=== PATIENT | female | born 1990 | race Caucasian/White ===

== ENCOUNTER 2016-06-26 19:37 | Emergency (ER) | payer MEDICAID ==
[2016-06-26] MEDS ORDERED: ACYCLOVIR 200 MG CAPSULE PO ONE (19:57)
[2016-06-26] MEDS ORDERED: HYDROCODONE/APAP 5/325MG TABLET PO ONE (19:57)
--- NOTE | 2016-06-26 20:00 | Emergency Department Record ---
History of Present Illness - General Chief complaint: Rash Stated complaint: LIP PROBLEM Time Seen by Provider: 06/26/16 19:57 Source: Patient Mode of Arrival: Ambulatory Limitations: No limitations - History of Present Illness Initial comments: 25 yo female presents to ED with a CC of swelling, pain, and burning to the left lower lip. Patient reports previous symptoms related to herpes simplex. Patient reports that she is out of her acyclovir, and would like to start the medication before it becomes worse as she is going to work in the morning. MD complaint: Other Onset/Timin -: Hour(s) Location: Face Severity scale (1-10): 8 Quality: Other Consistency: Constant Improves with: None Worsens with: Palpation Treatments Prior to Arrival: None - Related Data Previous Rx's Medication Instructions Recorded Acyclovir [Zovirax] 800 mg PO 5XD #34 tablet 06/26/16 Hydrocodone/Acetaminophen [[place] 1 tab PO Q6H PRN #6 tab 06/26/16 5mg/325mg] Allergies Allergy/AdvReac Type Severity Reaction Status Date / Time cyclobenzaprine HCl Allergy Intermediate DIZZINESS Verified 06/26/16 19:43 [From Flexeril] ibuprofen Allergy Intermediate GI upset, Verified 06/26/16 19:43 red patches Travel Screening - Travel/Exposure Within Last 30 Days Have you traveled within the last 30 days?: No - Travel Symptoms Symptom Screening: None Review of Systems Constitutional: Denies: Chills, Fever, Malaise, Night sweats Eyes: Denies: Eye discharge, Eye pain ENT: Reports: Other (lip burning). Denies: Congestion, Ear pain, Epistaxis Respiratory: Denies: Cough, Dyspnea Cardiovascular: Denies: Chest pain, Dyspnea on exertion Endocrine: Denies: Fatigue, Heat or cold intolerance Gastrointestinal: Denies: Abdominal pain, Nausea, Vomiting Genitourinary: Denies: Dysuria, Frequency, Hematuria, Incontinence Musculoskeletal: Denies: Arthralgia, Back pain, Gout, Joint swelling Skin: Denies: Bruising, Change in color Neurological: Denies: Abnormal gait, Confusion, Headache, Seizure Psychiatric: Denies: Anxiety Hematological/Lymphatic: Denies: Anemia, Blood Clots Past Medical History - SOCIAL HISTORY Smoking Status: Current every day smoker - RESPIRATORY Hx Respiratory Disorders: No - CARDIOVASCULAR Hx Cardio Disorders: No - NEURO Hx Neuro Disorders: Yes Hx Headaches: Yes - GI Hx GI Disorders: Yes Hx Liver Disease: Yes (elevated enzymes) - Hx Genitourinary Disorders: No - ENDOCRINE Hx Endocrine Disorders: No - MUSCULOSKELETAL Hx Musculoskeletal Disorders: Yes Comment:: Herpes zoster - PSYCH Hx Psych Problems: No - HEMATOLOGY/ONCOLOGY Hx Hematology/Oncology Disorders: No Family Medical History Any Significant Family History?: Yes Hx Diabetes: Grandparents Physical Exam - General General Appearance: Alert, Oriented x3, Cooperative, No acute distress Limitations: No limitations - Head Head exam: Atraumatic, Normocephalic, Normal inspection Head exam detail: Other (very mild STS to the left lower lip, small ulceration to the inner lip mucosa). negative: Abrasion, Contusion, Luke's sign, General tenderness, Hematoma, Laceration - Eye Eye exam: Normal appearance. negative: Conjunctival injection, Periorbital swelling, Periorbital tenderness, Scleral icterus - ENT Ear exam: negative: Auricular hematoma, Auricular trauma Nasal Exam: negative: Active bleeding, Discharge, Dried blood, Foreign body Mouth exam: negative: Drooling, Laceration, Muffled voice, Tongue elevation - Neck Neck exam: Normal inspection. negative: Meningismus, Tenderness - Respiratory Respiratory exam: Normal lung sounds bilaterally. negative: Rales, Respiratory distress, Rhonchi, Stridor - Cardiovascular Cardiovascular Exam: Regular rate, Normal rhythm, Normal heart sounds - GI/Abdominal GI/Abdominal exam: Soft. negative: Rebound, Rigid, Tenderness - Rectal Rectal exam: Deferred - exam: Deferred - Extremities Extremities exam: Normal inspection. negative: Calf tenderness, Pedal edema, Tenderness - Back Back exam: Denies: CVA tenderness (R), CVA tenderness (L) - Neurological Neurological exam: Alert, Normal gait, Oriented X3 - Psychiatric Psychiatric exam: Normal affect, Normal mood - Skin Skin exam: Normal color. negative: Abrasion Type of lesion: negative: abrasion Course Vital Signs 06/26/16 19:43 Temperature 98.4 F Pulse Rate [ 104 H Pulse Ox Probe] Respiratory 20 Rate Blood Pressure 125/101 [Left Arm] Pulse Ox 97 - Reevaluation(s) Reevaluation #1: 06/26/16 20:03 Patients history and physical examination appear consistent with oral herpes, and the patient appears stable for discharge on acyclovir and [place] for her symptoms. Disposition Disposition: Discharge Clinical Impression: Herpes simplex Disposition: Home, Self-Care Condition: (2) Stable Instructions: Oral Herpes Simplex Virus Infections (ED) Additional Instructions: Return to ED if your symptoms worsen or if you have any concerns. Acyclovir and [place] as directed. Follow-up with your family doctor in 3-5 days as directed. Prescriptions: Hydrocodone/Acetaminophen [[place] 5mg/325mg] 1 tab PO Q6H PRN #6 tab PRN Reason: Pain - General Acyclovir [Zovirax] 800 mg PO 5XD #34 tablet Forms: Patient Portal Access Time of Disposition: 19:59
== END 2016-06-26 20:15 | disposition home or self-care (01) ==
LOC: ER 19:37
DX: B00.1 Herpesviral vesicular dermatitis (principal)
CPT/HCPCS: 99282

== ENCOUNTER 2016-08-12 17:47 | Emergency (ER) | payer MEDICAID ==
[2016-08-12] MEDS ORDERED: HYDROCODONE/APAP 5/325MG TABLET PO ONE (18:07)
--- NOTE | 2016-08-12 18:12 | Emergency Department Record ---
History of Present Illness - General Chief complaint: Extremity Problem Stated complaint: FINGER INJURY Time Seen by Provider: 08/12/16 18:06 Source: Patient, Family Mode of Arrival: Ambulatory Limitations: No limitations - History of Present Illness Initial comments: 26 yo female presents with an injury to the right hand. She slammed her hand in a door around 6:30am. 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 She has some pain with movement. MD Complaint: Extremity pain, Joint swelling Onset/Timin -: Hour(s) Location: Right, Hand History of Same: No -: Yes Arthralgia Quality: Aching Consistency: Constant Improves with: Nothing Worsens with: Exertion, Other Associated Symptoms: Denies other symptoms - Related Data Previous Rx's Medication Instructions Recorded Hydrocodone/Acetaminophen [[place] 1 each PO Q8H PRN #15 tablet 08/12/16 5-325 Tablet] Allergies Allergy/AdvReac Type Severity Reaction Status Date / Time cyclobenzaprine HCl Allergy Intermediate DIZZINESS Verified 06/26/16 19:43 [From Flexeril] ibuprofen Allergy Intermediate GI upset, Verified 06/26/16 19:43 red patches Travel Screening - Travel/Exposure Within Last 30 Days Have you traveled within the last 30 days?: No - Travel/Exposure Within Last Year Have you traveled outside the [place] in the last year?: No - Additonal Travel Details Have you been exposed to anyone with a communicable illness?: No - Travel Symptoms Symptom Screening: None Review of Systems Constitutional: Denies: Chills, Fever, Malaise, Weakness Eyes: Denies: Eye discharge, Eye pain, Photophobia, Vision change ENT: Denies: Congestion, Throat pain Respiratory: Denies: Cough Cardiovascular: Denies: Chest pain, Palpitations, Syncope Endocrine: Denies: Fatigue, Polydipsia, Polyuria Gastrointestinal: Denies: Abdominal pain, Diarrhea, Nausea, Vomiting Genitourinary: Denies: Dysuria, Urgency Musculoskeletal: Reports: As per HPI, Arthralgia, Joint swelling Skin: Reports: As per HPI, Bruising, Change in color Neurological: Denies: Confusion, Headache, Weakness Psychiatric: Denies: Anxiety Hematological/Lymphatic: Denies: Blood Clots, Easy bleeding, Easy bruising, Swollen glands Past Medical History - SOCIAL HISTORY Smoking Status: Current every day smoker Alcohol Use: Occassional Drug Use: None - RESPIRATORY Hx Respiratory Disorders: No - CARDIOVASCULAR Hx Cardio Disorders: No - NEURO Hx Neuro Disorders: Yes Hx Headaches: Yes - GI Hx GI Disorders: Yes Hx Liver Disease: Yes (elevated enzymes) - Hx Genitourinary Disorders: No - ENDOCRINE Hx Endocrine Disorders: No - MUSCULOSKELETAL Hx Musculoskeletal Disorders: Yes Comment:: Herpes zoster - PSYCH Hx Psych Problems: No - HEMATOLOGY/ONCOLOGY Hx Hematology/Oncology Disorders: No Family Medical History Any Significant Family History?: No Hx Diabetes: Grandparents Physical Exam - General General Appearance: Alert, Oriented x3, Cooperative, No acute distress Limitations: No limitations - Head Head exam: Normal inspection - Eye Eye exam: Normal appearance, PERRL. negative: Conjunctival injection, Periorbital swelling - ENT ENT exam: Normal exam, Mucous membranes moist Ear exam: Normal external inspection Nasal Exam: Normal inspection Mouth exam: Normal external inspection Teeth exam: Normal inspection Throat exam: Normal inspection - Neck Neck exam: Normal inspection - Cardiovascular Cardiovascular Exam: Regular rate, Normal rhythm, Normal heart sounds Peripheral Pulses: 2+: Radial (R) - Rectal Rectal exam: Deferred - exam: Deferred - Extremities Extremities exam: Joint swelling, Normal capillary refill, Tenderness. negative : Normal inspection, Full ROM Image of Hand: 1 - mild swelling and bruising, small lateral subungual hematoma, <1/2 of finger. mild decrease in ROM due to swelling, skin is intact - Neurological Neurological exam: Alert, Oriented X3 - Psychiatric Psychiatric exam: Normal affect, Normal mood. negative: Agitated, Anxious - Skin Skin exam: Dry, Intact, Normal color, Warm Course Vital Signs 08/12/16 17:51 Temperature 97.8 F Pulse Rate 104 H Respiratory 18 Rate Blood Pressure 119/76 Pulse Ox 100 - Reevaluation(s) Reevaluation #1: The patient was seen and examined XR ordered. 08/12/16 18:14 Reevaluation #2: 08/12/16 18:40XR demonstrates a distal non displaced tiff fracture She was informed and will be splinted Disposition Disposition: Discharge Clinical Impression: Finger fracture, right Qualifiers: Encounter type: initial encounter Finger: little finger Fracture type: closed Phalanx: distal Fracture alignment: nondisplaced Qualified Code(s): S62.666A - Nondisplaced fracture of distal phalanx of right little finger, initial encounter for closed fracture Disposition: Home, Self-Care Condition: (1) Good Instructions: Finger Fracture (ED) Additional Instructions: Ice and elevate Avoid use the next several days Return if you have swelling or uncontrolled pain or any new concerns No driving within 8 hours of taking [place] as it can cause drowsiness. Prescriptions: Hydrocodone/Acetaminophen [[place] 5-325 Tablet] 1 each PO Q8H PRN #15 tablet PRN Reason: Pain - General Forms: Patient Portal Access Time of Disposition: 18:42
--- NOTE | 2016-08-17 14:48 | RADIOLOGY REPORT ---
EXAM: RIGHT HAND, FOUR VIEWS HISTORY: CLOSED HAND IN RIGHT HANDED DOOR. RIGHT FINGER PAIN. TECHNIQUE: Four views of the right hand were obtained. Comparison: None. Encounter: Initial. FINDINGS: There is an acute nondisplaced transverse fracture of the distal tuft of the right fifth distal phalanx. No additional fracture. IMPRESSION: ACUTE NONDISPLACED FRACTURE DISTAL TUFT RIGHT FIFTH DISTAL PHALANX. JOB NUMBER: [id number] MTDD
== END 2016-08-12 18:59 | disposition home or self-care (01) ==
LOC: ER 17:47
DX: S62.666A Nondisplaced fracture of distal phalanx of right little finger, initial encounter for closed fracture (principal); W22.8XXA Striking against or struck by other objects, initial encounter; Y92.009 Unspecified place in unspecified non-institutional (private) residence as the place of occurrence of the external cause
CPT/HCPCS: 99283

== ENCOUNTER 2016-08-24 18:32 | Emergency (ER) | payer SELFPAY ==
[2016-08-24 19:14] LABS: URINE APPEARANCE CLEAR; URINE BILIRUBIN NEGATIVE (NEGATIVE); URINE BLOOD LARGE (NEGATIVE); URINE COLOR YELLOW; URINE GLUCOSE (UA) NEGATIVE (NEGATIVE); URINE KETONE NEGATIVE (NEGATIVE); URINE LEUKOCYTE ESTERASE NEGATIVE (NEGATIVE); URINE NITRITE NEGATIVE (NEGATIVE); URINE PROTEIN NEGATIVE (NEGATIVE); URINE UROBILINOGEN 0.2 E.U./dL (0.20 - 1.00)
[2016-08-24 19:17] LABS: HCG,QUALITATIVE URINE NEGATIVE (NEGATIVE)
[2016-08-24 19:24] LABS: URINE BACTERIA FEW; URINE MUCUS LIGHT; URINE WBC 0 - 2 (0-2/hpf)
[2016-08-24] MEDS ORDERED: ONDANSETRON HCL IV 4 MG/2 ML VIAL IV ONE (19:30)
[2016-08-24] MEDS ORDERED: 0.9 % SODIUM CHLORIDE 1,000 ML BAG IV ONE (19:30)
--- NOTE | 2016-08-24 19:53 | Emergency Department Record ---
History of Present Illness - General Chief Complaint: Recheck - Other Stated Complaint: VOMITING,ABD PAIN, NEEDS FINGER RE CHECK Time Seen by Provider: 08/24/16 19:24 Source: Patient Mode of arrival: Ambulatory Limitations: No limitations - History of Present Illness Initial Comments: pt has been vomiting for 3 days sandrine in the am. she has no diarrhea. she denies diarrhea. pt also needs a new splint for her previously dxd fx finger Complaint: Other Onset/Timin -: Days(s) Initial Visit For: Other Returns Today for: Other Symptoms Since Prior Visit: No new symptoms Associated Symptoms: None - Related Data Home Medications Medication Instructions Recorded Confirmed Last Taken No Home Med [NO HOME MEDS] 08/24/16 08/24/16 Unknown Allergies Allergy/AdvReac Type Severity Reaction Status Date / Time cyclobenzaprine HCl Allergy Intermediate DIZZINESS Verified 06/26/16 19:43 [From Flexeril] ibuprofen Allergy Intermediate GI upset, Verified 06/26/16 19:43 red patches Travel Screening - Travel/Exposure Within Last 30 Days Have you traveled within the last 30 days?: No Review of Systems Reviewed: No additional complaints except as noted below Constitutional: Reports: As per HPI. Denies: Chills, Fever, Malaise, Night sweats, Weakness, Weight change Eyes: Reports: As per HPI. Denies: Eye discharge, Eye pain, Photophobia, Vision change ENT: Reports: As per HPI. Denies: Congestion, Dental pain, Ear pain, Epistaxis , Hearing loss, Throat pain Respiratory: Reports: As per HPI. Denies: Cough, Dyspnea, Hemoptysis, Stridor, Wheezes Cardiovascular: Reports: As per HPI. Denies: Arrhythmia, Chest pain, Dyspnea on exertion, Edema, Murmurs, Orthopnea, Palpitations, Paroxysmal nocturnal dyspnea, Rheumatic Fever, Syncope Endocrine: Reports: As per HPI. Denies: Fatigue, Heat or cold intolerance, Polydipsia, Polyuria Gastrointestinal: Reports: As per HPI. Denies: Abdominal pain, Constipation, Diarrhea, Hematemesis, Hematochezia, Melena, Nausea, Vomiting Genitourinary: Reports: As per HPI. Denies: Abnormal menses, Discharge, Dyspareunia, Dysuria, Frequency, Hematuria, Incontinence, Retention, Urgency Musculoskeletal: Reports: As per HPI. Denies: Arthralgia, Back pain, Gout, Joint swelling, Myalgia, Neck pain Skin: Reports: As per HPI. Denies: Bruising, Change in color, Change in hair/ nails, Lesions, Pruritus, Rash Neurological: Reports: As per HPI. Denies: Abnormal gait, Confusion, Headache, Numbness, Paresthesias, Seizure, Tingling, Tremors, Vertigo, Weakness Psychiatric: Reports: As per HPI. Denies: Anxiety, Auditory hallucinations, Depression, Homicidal thoughts, Suicidal thoughts, Visual hallucinations Hematological/Lymphatic: Reports: As per HPI. Denies: Anemia, Blood Clots, Easy bleeding, Easy bruising, Swollen glands Past Medical History - SOCIAL HISTORY Smoking Status: Current every day smoker Alcohol Use: None Drug Use: None - RESPIRATORY Hx Respiratory Disorders: No - CARDIOVASCULAR Hx Cardio Disorders: No - NEURO Hx Neuro Disorders: Yes Hx Headaches: Yes - GI Hx GI Disorders: Yes Hx Liver Disease: Yes (elevated enzymes) - Hx Genitourinary Disorders: No - ENDOCRINE Hx Endocrine Disorders: No - MUSCULOSKELETAL Hx Musculoskeletal Disorders: Yes Comment:: Herpes zoster - PSYCH Hx Psych Problems: No - HEMATOLOGY/ONCOLOGY Hx Hematology/Oncology Disorders: No Family Medical History Any Significant Family History?: Yes Hx Diabetes: Grandparents Physical Exam - General General Appearance: Alert, Oriented x3, Cooperative, Mild distress - Head Head exam: Normal inspection - Eye Eye exam: Normal appearance, PERRL, EOMI Pupils: Normal accommodation - ENT ENT exam: Normal exam, Mucous membranes dry, Normal external ear exam, Normal orophraynx Ear exam: Normal external inspection. negative: External canal tenderness Nasal Exam: Normal inspection. negative: Discharge, Sinus tenderness Mouth exam: Normal external inspection, Tongue normal Teeth exam: Normal inspection. negative: Dental caries Throat exam: Normal inspection. negative: Tonsillar erythema, Tonsillar exudate - Neck Neck exam: Normal inspection, Full ROM. negative: Tenderness - Respiratory Respiratory exam: Normal lung sounds bilaterally. negative: Respiratory distress - Cardiovascular Cardiovascular Exam: Normal rhythm, Normal heart sounds, Tachycardia - GI/Abdominal GI/Abdominal exam: Soft, Normal bowel sounds. negative: Tenderness - Rectal Rectal exam: Deferred - exam: Deferred - Extremities Extremities exam: Normal inspection, Full ROM, Normal capillary refill. negative: Tenderness - Back Back exam: Reports: Normal inspection, Full ROM. Denies: Muscle spasm, Rash noted, Tenderness - Neurological Neurological exam: Alert, CN II-XII intact, Normal gait, Oriented X3 - Psychiatric Psychiatric exam: Normal affect, Normal mood - Skin Skin exam: Dry, Intact, Normal color, Warm Course Vital Signs 08/24/16 18:53 Temperature 99.0 F Pulse Rate 123 H Respiratory 18 Rate Blood Pressure 134/104 Pulse Ox 98 - Reevaluation(s) Reevaluation #1: 08/24/16 19:53 iv hydration was ordered along with labs and meds. pt refused labs and iv and just wanted resplinting and nausea med. because she was anxious to leave for work. Medical Decision Making - Lab Data Result diagrams: 08/24/16 19:30 08/24/16 19:30 Lab Results 08/24/16 Range/Units 19:10 Urine Color Yellow Urine Appearance Clear Urine pH 6.0 (5.0-8.0) Ur Specific [place] 1.015 (1.002-1.030) Urine Protein Negative (NEGATIVE) Urine Glucose (UA) Negative (NEGATIVE) Urine Ketones Negative (NEGATIVE) Urine Blood Large H (NEGATIVE) Urine Nitrite Negative (NEGATIVE) Urine Bilirubin Negative (NEGATIVE) Urine Urobilinogen 0.2 (0.20 - 1.00) E.U./dL Ur Leukocyte Esterase Negative (NEGATIVE) Urine RBC 7 - 10 (NONE SEEN) Urine WBC 0 - 2 (0-2/hpf) U Non-Squamous Epi Cells 7 - 10 /hpf Urine Bacteria Few Urine Mucus Light Urine HCG, Qual Negative (NEGATIVE) Disposition Disposition: Discharge Clinical Impression: Vomiting Qualifiers: Vomiting type: unspecified Vomiting Intractability: non-intractable Nausea presence: with nausea Qualified Code(s): R11.2 - Nausea with vomiting, unspecified Disposition: Home, Self-Care Condition: (1) Good Instructions: Acute Nausea and Vomiting (ED) Additional Instructions: push fluids. return if not better. follow up with family doctor. Forms: Patient Portal Access
[2016-08-24] MEDS ORDERED: ONDANSETRON 4 MG ODT TABLET SL ONE (20:06)
== END 2016-08-24 20:13 | disposition home or self-care (01) ==
LOC: ER 18:32
DX: R11.2 Nausea with vomiting, unspecified (principal); S62.606D Fracture of unspecified phalanx of right little finger, subsequent encounter for fracture with routine healing
CPT/HCPCS: 81001; 81025; 99282

== ENCOUNTER 2016-08-26 17:14 | Emergency (ER) | payer SELFPAY ==
[2016-08-26] MEDS ORDERED: ONDANSETRON HCL IV 4 MG/2 ML VIAL IVP ONE (18:29)
[2016-08-26] MEDS ORDERED: LORAZEPAM 2 MG/ML VIAL IV ONE ×2 (18:29→19:43)
[2016-08-26] MEDS ORDERED: MVI, ADULT NO.4 WITH VIT K 10 ML, THIAMINE HCL IV 100 MG in 0.9 % SODIUM CHLORIDE 1000M... IV SCH ×3 (18:30)
--- NOTE | 2016-08-26 18:36 | Emergency Department Record ---
History of Present Illness - General Chief Complaint: Detox Evaluation Stated Complaint: DETOX Time Seen by Provider: 08/26/16 18:17 Source: Patient, Family Mode of Arrival: Ambulatory Limitations: No limitations Travel/Exposure to [place] Within 21 Days of Symptoms: No - History of Present Illness Initial Comments: pt states she wants to quit drinking. she has drank for many years. she has quit at times and then gone back to it. she has drank a fifth a day for the last 3 years. she gets tremors when she doesnt drink. her last drink was this morning. she also has been vomiting. she has never been to rehab. she is here with a friend and her mother. pt has plans to go to in [place]. pt also feels shes having palpitations Onset/Timin -: Year(s) Associated Psychiatric Symptoms: Auditory hallucinations, Depression, Other Quality: Getting worse Improves With: None Worsens With: Other Associated Symptoms: Vomiting - [place] Coma Scale Eye Response: (4) Open spontaneously Motor Response: (6) Obeys commands Verbal Response: (5) Oriented [place] Total: 15 - Related Data Home Medications Medication Instructions Recorded Confirmed Last Taken No Home Med [NO HOME MEDS] 08/24/16 08/24/16 Unknown Allergies Allergy/AdvReac Type Severity Reaction Status Date / Time cyclobenzaprine HCl Allergy Intermediate DIZZINESS Verified 06/26/16 19:43 [From Flexeril] ibuprofen Allergy Intermediate GI upset, Verified 06/26/16 19:43 red patches Review of Systems Reviewed: No additional complaints except as noted below Constitutional: Reports: As per HPI, Weakness. Denies: Chills, Fever, Malaise, Night sweats, Weight change Eyes: Reports: As per HPI. Denies: Eye discharge, Eye pain, Photophobia, Vision change ENT: Reports: As per HPI. Denies: Congestion, Dental pain, Ear pain, Epistaxis , Hearing loss, Throat pain Respiratory: Reports: As per HPI. Denies: Cough, Dyspnea, Hemoptysis, Stridor, Wheezes Cardiovascular: Reports: As per HPI, Palpitations. Denies: Arrhythmia, Chest pain, Dyspnea on exertion, Edema, Murmurs, Orthopnea, Paroxysmal nocturnal dyspnea, Rheumatic Fever, Syncope Endocrine: Reports: As per HPI, Fatigue. Denies: Heat or cold intolerance, Polydipsia, Polyuria Gastrointestinal: Reports: As per HPI, Nausea, Vomiting. Denies: Abdominal pain , Constipation, Diarrhea, Hematemesis, Hematochezia, Melena Genitourinary: Reports: As per HPI. Denies: Abnormal menses, Discharge, Dyspareunia, Dysuria, Frequency, Hematuria, Incontinence, Retention, Urgency Musculoskeletal: Reports: As per HPI, Myalgia. Denies: Arthralgia, Back pain, Gout, Joint swelling, Neck pain Skin: Reports: As per HPI. Denies: Bruising, Change in color, Change in hair/ nails, Lesions, Pruritus, Rash Neurological: Reports: As per HPI, Tremors, Weakness. Denies: Abnormal gait, Confusion, Headache, Numbness, Paresthesias, Seizure, Tingling, Vertigo Psychiatric: Reports: As per HPI, Anxiety, Depression. Denies: Auditory hallucinations, Homicidal thoughts, Suicidal thoughts, Visual hallucinations Hematological/Lymphatic: Reports: As per HPI. Denies: Anemia, Blood Clots, Easy bleeding, Easy bruising, Swollen glands Past Medical History - SOCIAL HISTORY Smoking Status: Current every day smoker Alcohol Use: Heavy Drug Use: None - RESPIRATORY Hx Respiratory Disorders: No - CARDIOVASCULAR Hx Cardio Disorders: No - NEURO Hx Neuro Disorders: Yes Hx Headaches: Yes - GI Hx GI Disorders: Yes Hx Liver Disease: Yes (elevated enzymes) - Hx Genitourinary Disorders: No - ENDOCRINE Hx Endocrine Disorders: No - MUSCULOSKELETAL Hx Musculoskeletal Disorders: Yes Comment:: Herpes zoster - PSYCH Hx Psych Problems: No - HEMATOLOGY/ONCOLOGY Hx Hematology/Oncology Disorders: No Family Medical History Any Significant Family History?: Yes Hx Diabetes: Grandparents Physical Exam - General General Appearance: Alert, Oriented x3, Cooperative, Mild distress - Head Head exam: Normal inspection - Eye Eye exam: Normal appearance, PERRL, EOMI Pupils: Normal accommodation - ENT ENT exam: Normal exam, Mucous membranes dry, Normal external ear exam, Normal orophraynx Ear exam: Normal external inspection. negative: External canal tenderness Nasal Exam: Normal inspection. negative: Discharge, Sinus tenderness Mouth exam: Normal external inspection, Tongue normal Teeth exam: Normal inspection. negative: Dental caries Throat exam: Normal inspection. negative: Tonsillar erythema, Tonsillar exudate - Neck Neck exam: Normal inspection, Full ROM. negative: Tenderness - Respiratory Respiratory exam: Normal lung sounds bilaterally. negative: Respiratory distress - Cardiovascular Cardiovascular Exam: Normal rhythm, Normal heart sounds, Tachycardia - GI/Abdominal GI/Abdominal exam: Soft, Normal bowel sounds. negative: Tenderness - Rectal Rectal exam: Deferred - exam: Deferred - Extremities Extremities exam: Normal inspection, Full ROM, Normal capillary refill. negative: Tenderness - Back Back exam: Reports: Normal inspection, Full ROM. Denies: Muscle spasm, Rash noted, Tenderness - Neurological Neurological exam: Alert, CN II-XII intact, Normal gait, Oriented X3, Other ( tremors) - Psychiatric Psychiatric exam: Normal affect, Normal mood - Skin Skin exam: Dry, Intact, Normal color, Warm Course Vital Signs 08/26/16 17:33 Temperature 99 F Pulse Rate 136 H Respiratory 20 Rate Blood Pressure 147/101 Pulse Ox 98 - Reevaluation(s) Reevaluation #1: 08/26/16 18:41 care being turned over to dr claudio. Medical Decision Making - Management Options MDM Management: Additional Work-up Planned (e.g. ADM/Transfer/OP Study) - Data Complexity MDM Data: Labs Ordered and/or Reviewed, EKG Ordered and/or Reviewed - Lab Data Result diagrams: 08/26/16 19:00 08/26/16 19:00 - EKG Data -: EKG Interpreted by Me EKG: Abnormal EKG (sinus tach 120) Disposition Forms: Patient Portal Access
[2016-08-26 19:11] LABS: BASO % 0.3 % (0-6); EOS % 0.4 % (0-6); GRAN % 76.4 % (47-80); HEMATOCRIT 48.7 % (35.0-47.0); HEMOGLOBIN 16.8 gm/dl (11.6-16.0); LYMPH % 15.9 % (16-45); MEAN CELL VOLUME 98.6 fl (81-97); MEAN CORPUSCULAR HGB CONC 34.5 g/dl (32-36); MEAN PLATELET VOLUME 9.3 fl (7.4-10.4); PLATELET COUNT 314 K/uL (130-400); RED BLOOD COUNT 4.94 M/uL (3.80-5.40); RED CELL DISTRIBUTION WIDTH 12.4 % (11.5-14.5)
[2016-08-26 19:15] LABS: URINE APPEARANCE CLEAR; URINE BILIRUBIN NEGATIVE (NEGATIVE); URINE BLOOD MODERATE (NEGATIVE); URINE COLOR YELLOW; URINE GLUCOSE (UA) NEGATIVE (NEGATIVE); URINE KETONE NEGATIVE (NEGATIVE); URINE LEUKOCYTE ESTERASE NEGATIVE (NEGATIVE); URINE NITRITE NEGATIVE (NEGATIVE); URINE UROBILINOGEN 0.2 E.U./dL (0.20 - 1.00)
[2016-08-26 19:19] LABS: BARBITURATE SCREEN URINE NOT DETECTED; TRICYCLIC ANTIDEPRESSANT SCRN NOT DETECTED
[2016-08-26 19:20] LABS: AMPHETAMINE SCREEN URINE NOT DETECTED; ANION GAP 13.5 (7-16); BENZODIAZEPINE SCREEN URINE NOT DETECTED; BLOOD UREA NITROGEN 9 mg/dL (7-17); CARBON DIOXIDE 22.5 mmol/L (22-30); COCAINE SCREEN URINE NOT DETECTED; CREATININE 0.8 mg/dL (0.52-1.04); EST GLOMERULAR FILTRATION RATE > 60 ml/min; GLUCOSE,RANDOM 86 mg/dL (70-110); LIPASE 87 U/L (23-300); METHADONE SCREEN URINE NOT DETECTED; METHAMPHETAMINE SCREEN NOT DETECTED; OPIATE SCREEN URINE NOT DETECTED; OXYCODONE SCREEN URINE NOT DETECTED; PHENCYCLIDINE SCREEN URINE NOT DETECTED; PROPOXYPHENE SCREEN URINE NOT DETECTED; THC SCREEN URINE NOT DETECTED
[2016-08-26 19:21] LABS: ALBUMIN 4.9 gm/dL (3.5-5.0); ALCOHOL 0.037 g/dL (0-0.010); BILIRUBIN,TOTAL 0.81 mg/dL (0.2-1.3); HCG,QUALITATIVE URINE NEGATIVE (NEGATIVE); TOTAL PROTEIN 7.8 gm/dL (6.3-8.2)
[2016-08-26 19:26] LABS: URINE BACTERIA FEW
[2016-08-26 19:28] LABS: URINE MUCUS LIGHT
--- NOTE | 2016-08-26 19:43 | Emergency Department Record ---
History of Present Illness - General Chief Complaint: Detox Evaluation Stated Complaint: DETOX Time Seen by Provider: 08/26/16 18:17 Source: Patient, Family Mode of Arrival: Ambulatory Limitations: No limitations Travel/Exposure to [place] Within 21 Days of Symptoms: No - History of Present Illness Initial Comments: 26 yo female turned over at the shift turnover by Dr Dominguez The labs were reviewed. No acute changes except mild LFT changes of the AST/ALT No other changes of the CBC,CMP,UDS. Last drink was this AM No history of current or prior withdrawal seizures Good social and family support MD Complaint: Other (Alcohol withdrawal) Onset/Timin -: Year(s) Associated Psychiatric Symptoms: Auditory hallucinations, Depression, Other Quality: Getting worse Improves With: None Worsens With: Other Context: Recent alcohol abuse (Last drink this AM) Associated Symptoms: Vomiting - Nicky Coma Scale Eye Response: (4) Open spontaneously Motor Response: (6) Obeys commands Verbal Response: (5) Oriented Nicky Total: 15 - Related Data Previous Rx's Medication Instructions Recorded Lorazepam [Ativan] 0.5 mg PO Q6H PRN #12 tablet 08/26/16 Ondansetron [Zofran Odt] 4 mg PO Q8H #15 tab.rapdis 08/26/16 Allergies Allergy/AdvReac Type Severity Reaction Status Date / Time cyclobenzaprine HCl Allergy Intermediate DIZZINESS Verified 06/26/16 19:43 [From Flexeril] ibuprofen Allergy Intermediate GI upset, Verified 06/26/16 19:43 red patches Review of Systems Constitutional: Reports: As per HPI, Weakness. Denies: Chills, Fever, Malaise, Night sweats, Weight change Eyes: Reports: As per HPI. Denies: Eye discharge, Eye pain, Photophobia, Vision change ENT: Reports: As per HPI. Denies: Congestion, Dental pain, Ear pain, Epistaxis , Hearing loss, Throat pain Respiratory: Reports: As per HPI. Denies: Cough, Dyspnea, Hemoptysis, Stridor, Wheezes Cardiovascular: Reports: As per HPI, Palpitations. Denies: Arrhythmia, Chest pain, Dyspnea on exertion, Edema, Murmurs, Orthopnea, Paroxysmal nocturnal dyspnea, Rheumatic Fever, Syncope Endocrine: Reports: As per HPI, Fatigue. Denies: Heat or cold intolerance, Polydipsia, Polyuria Gastrointestinal: Reports: As per HPI, Nausea, Vomiting. Denies: Abdominal pain , Constipation, Diarrhea, Hematemesis, Hematochezia, Melena Genitourinary: Reports: As per HPI. Denies: Abnormal menses, Discharge, Dyspareunia, Dysuria, Frequency, Hematuria, Incontinence, Retention, Urgency Musculoskeletal: Reports: As per HPI, Myalgia. Denies: Arthralgia, Back pain, Gout, Joint swelling, Neck pain Skin: Reports: As per HPI. Denies: Bruising, Change in color, Change in hair/ nails, Lesions, Pruritus, Rash Neurological: Reports: As per HPI, Tremors, Weakness. Denies: Abnormal gait, Confusion, Headache, Numbness, Paresthesias, Seizure, Tingling, Vertigo Psychiatric: Reports: As per HPI, Anxiety, Depression. Denies: Auditory hallucinations, Homicidal thoughts, Suicidal thoughts, Visual hallucinations Hematological/Lymphatic: Reports: As per HPI. Denies: Anemia, Blood Clots, Easy bleeding, Easy bruising, Swollen glands Past Medical History - SOCIAL HISTORY Smoking Status: Current every day smoker Alcohol Use: Heavy Drug Use: None - RESPIRATORY Hx Respiratory Disorders: No - CARDIOVASCULAR Hx Cardio Disorders: No - NEURO Hx Neuro Disorders: Yes Hx Headaches: Yes - GI Hx GI Disorders: Yes Hx Liver Disease: Yes (elevated enzymes) - Hx Genitourinary Disorders: No - ENDOCRINE Hx Endocrine Disorders: No - MUSCULOSKELETAL Hx Musculoskeletal Disorders: Yes Comment:: Herpes zoster - PSYCH Hx Psych Problems: No - HEMATOLOGY/ONCOLOGY Hx Hematology/Oncology Disorders: No Family Medical History Any Significant Family History?: Yes Hx Diabetes: Grandparents Physical Exam - General Limitations: No limitations Course Vital Signs 08/26/16 17:33 Temperature 99 F Pulse Rate 136 H Respiratory 20 Rate Blood Pressure 147/101 Pulse Ox 98 - Reevaluation(s) Reevaluation #1: The HR 122. Still some shakiness 08/26/16 19:39 Reevaluation #2: HR was 110 The patient states she is doing much better and does not have nausea or shakes. She declined additional Ativan at this time. She would like to go home with a good support network I did offer additional monitoring or OBVS. She feels much improved and states she would be safe and comfortable at home She will be starting AA We discussed home care and reasons to return this weekend 08/26/16 20:49 08/26/16 20:54 Medical Decision Making - Lab Data Result diagrams: 08/26/16 19:00 08/26/16 19:00 Lab Results 08/26/16 08/26/16 08/26/16 Range/Units 19:00 19:00 19:00 WBC 9.0 (4.2-12.2) K/uL RBC 4.94 (3.80-5.40) M/uL Hgb 16.8 H (11.6-16.0) gm/dl Hct 48.7 H (35.0-47.0) % MCV 98.6 H (81-97) fl MCH 34.0 H (27-33) pg MCHC 34.5 (32-36) g/dl RDW 12.4 (11.5-14.5) % Plt Count 314 (130-400) K/uL MPV 9.3 (7.4-10.4) fl Gran % 76.4 (47-80) % Lymphocytes % 15.9 L (16-45) % Monocytes % 7.0 (0-9) % Eosinophils % 0.4 (0-6) % Basophils % 0.3 (0-6) % Sodium 139 (136-145) mmol/L Potassium 4.1 (3.5-5.1) mmol/L Chloride 103 (98-107) mmol/L Carbon Dioxide 22.5 (22-30) mmol/L Anion Gap 13.5 (7-16) BUN 9 (7-17) mg/dL Creatinine 0.8 (0.52-1.04) mg/dL Estimated GFR > 60 ml/min Random Glucose 86 (70-110) mg/dL Calcium 9.6 (8.5-10.1) mg/dL Total Bilirubin (0.2-1.3) mg/dL Direct Bilirubin (0-0.3) mg/dL AST (14-36) U/L ALT (9-52) U/L Alkaline Phosphatase (38-126) U/L Total Protein (6.3-8.2) gm/dL Albumin (3.5-5.0) gm/dL Lipase 87 (23-300) U/L Urine Color Yellow Urine Appearance Clear Urine pH 6.0 (5.0-8.0) Ur Specific [place] 1.020 (1.002-1.030) Urine Protein 30 mg/dl H (NEGATIVE) Urine Glucose (UA) Negative (NEGATIVE) Urine Ketones Negative (NEGATIVE) Urine Blood Moderate (NEGATIVE) Urine Nitrite Negative (NEGATIVE) Urine Bilirubin Negative (NEGATIVE) Urine Urobilinogen 0.2 (0.20 - 1.00) E.U./dL Ur Leukocyte Esterase Negative (NEGATIVE) Urine RBC 10 - 15 (NONE SEEN) Urine WBC 3 - 5 (0-2/hpf) Ur Epithelial Cells 10 - 15 (FEW) Urine Bacteria Few Urine Mucus Light Urine HCG, Qual Negative (NEGATIVE) Urine Opiates Screen Ur Oxycodone Screen Urine Methadone Screen Ur Propoxyphene Screen Ur Barbituates Screen Ur Tricyclics Screen Ur Phencyclidine Scrn Ur Amphetamine Screen U Methamphetamines Scrn U Benzodiazepines Scrn Urine Cocaine Screen Urine Cannabis Screen Ethyl Alcohol 0.037 H (0-0.010) g/dL 08/26/16 08/26/16 Range/Units 19:00 19:00 WBC (4.2-12.2) K/uL RBC (3.80-5.40) M/uL Hgb (11.6-16.0) gm/dl Hct (35.0-47.0) % MCV (81-97) fl MCH (27-33) pg MCHC (32-36) g/dl RDW (11.5-14.5) % Plt Count (130-400) K/uL MPV (7.4-10.4) fl Gran % (47-80) % Lymphocytes % (16-45) % Monocytes % (0-9) % Eosinophils % (0-6) % Basophils % (0-6) % Sodium (136-145) mmol/L Potassium (3.5-5.1) mmol/L Chloride (98-107) mmol/L Carbon Dioxide (22-30) mmol/L Anion Gap (7-16) BUN (7-17) mg/dL Creatinine (0.52-1.04) mg/dL Estimated GFR ml/min Random Glucose (70-110) mg/dL Calcium (8.5-10.1) mg/dL Total Bilirubin 0.81 (0.2-1.3) mg/dL Direct Bilirubin 0.0 (0-0.3) mg/dL AST 54 H (14-36) U/L ALT 54 H (9-52) U/L Alkaline Phosphatase 105 (38-126) U/L Total Protein 7.8 (6.3-8.2) gm/dL Albumin 4.9 (3.5-5.0) gm/dL Lipase (23-300) U/L Urine Color Urine Appearance Urine pH (5.0-8.0) Ur Specific [place] (1.002-1.030) Urine Protein (NEGATIVE) Urine Glucose (UA) (NEGATIVE) Urine Ketones (NEGATIVE) Urine Blood (NEGATIVE) Urine Nitrite (NEGATIVE) Urine Bilirubin (NEGATIVE) Urine Urobilinogen (0.20 - 1.00) E.U./dL Ur Leukocyte Esterase (NEGATIVE) Urine RBC (NONE SEEN) Urine WBC (0-2/hpf) Ur Epithelial Cells (FEW) Urine Bacteria Urine Mucus Urine HCG, Qual (NEGATIVE) Urine Opiates Screen Not detected Ur Oxycodone Screen Not detected Urine Methadone Screen Not detected Ur Propoxyphene Screen Not detected Ur Barbituates Screen Not detected Ur Tricyclics Screen Not detected Ur Phencyclidine Scrn Not detected Ur Amphetamine Screen Not detected U Methamphetamines Scrn Not detected U Benzodiazepines Scrn Not detected Urine Cocaine Screen Not detected Urine Cannabis Screen Not detected Ethyl Alcohol (0-0.010) g/dL Disposition Disposition: Discharge Clinical Impression: Alcohol withdrawal Qualifiers: Complication of substance-induced condition: uncomplicated Qualified Code(s): F10.230 - Alcohol dependence with withdrawal, uncomplicated Disposition: Home, Self-Care Condition: (1) Good Instructions: Alcohol Withdrawal (ED) Additional Instructions: Follow up at AA as planned Return if you have nausea, vomiting, shaking or new concerns as you stay away from alcohol Prescriptions: Lorazepam [Ativan] 0.5 mg PO Q6H PRN #12 tablet PRN Reason: Restlessness Ondansetron [Zofran Odt] 4 mg PO Q8H #15 tab.rapdis Forms: Patient Portal Access Time of Disposition: 20:52
[2016-08-26] MEDS ORDERED: 0.9 % SODIUM CHLORIDE 1,000 ML BAG IV ONE (19:44)
[2016-08-26] MEDS ORDERED: ONDANSETRON 4 MG ODT TABLET SL ONE ×2 (20:50→20:55)
[2016-08-26] MEDS ORDERED: LORAZEPAM 0.5 MG TABLET PO ONE (20:51)
== END 2016-08-26 21:14 | disposition home or self-care (01) ==
LOC: ER 17:14
DX: F10.230 Alcohol dependence with withdrawal, uncomplicated (principal); Y90.1 Blood alcohol level of 20-39 mg/100 ml; R11.11 Vomiting without nausea; R74.8 Abnormal levels of other serum enzymes; R00.0 Tachycardia, unspecified; F17.210 Nicotine dependence, cigarettes, uncomplicated
CPT/HCPCS: 99284 ×2; 96376; 96365; 96375; 96361; 83690; 85025; 80076; 80048; 81001; 81025; 80305; 93005; 93010; G0480; J2405; J2060; 80320; J3411; J7030

== ENCOUNTER 2016-12-04 10:19 | Emergency (ER) | payer OTHER ==
--- NOTE | 2016-12-04 10:47 | Emergency Department Record ---
History of Present Illness - General Chief Complaint: Abdominal Pain Stated Complaint: ABD PAIN,STUFFY NOSE Time Seen by Provider: 12/04/16 10:41 Source: Patient Mode of Arrival: Ambulatory Limitations: No limitations - History of Present Illness Initial Comments: The patient is here due to abdominal pain for one day associated with nausea, vomiting, and diarrhea. She states the onset was yesterday and she had vomited twice yesterday but none today. Additionally she had 2 episodes of loose stools today. The pain is sharp and stabbing and located in the epigastric area. She denies any lower abdominal pain, fever, chills, dysuria, or any vaginal issues. MD Complaint: Abdominal pain Onset/Timin -: Days(s) Location: Epigastric, Periumbilical Radiation: None Migration to: No migration Severity: Moderate Quality: Sharp Consistency: Intermittent Improves With: Nothing Worsens With: Nothing Associated Symptoms: Chills, Diarrhea, Fever, Nausea, Vomiting - Related Data LMP (females 10-50): Last week Patient : No Previous Rx's Medication Instructions Recorded Dicyclomine HCl [Bentyl] 10 mg PO Q8H #15 cap 12/04/16 Ondansetron [Zofran Odt] 4 mg SL .Q4-6H PRN #12 tab.rapdis 12/04/16 Sucralfate [Carafate] 1 gm PO QID #28 tablet 12/04/16 Allergies Allergy/AdvReac Type Severity Reaction Status Date / Time cyclobenzaprine HCl Allergy Intermediate DIZZINESS Verified 12/04/16 10:33 [From Flexeril] ibuprofen Allergy Intermediate GI upset, Verified 12/04/16 10:33 red patches Travel Screening - Travel/Exposure Within Last 30 Days Have you traveled within the last 30 days?: No Review of Systems Constitutional: Denies: Chills, Fever Eyes: Denies: Eye discharge ENT: Denies: Congestion Respiratory: Denies: Cough Past Medical History - SOCIAL HISTORY Smoking Status: Current every day smoker Alcohol Use: None Alcohol Use Comment: past alcohol abuse/current rehab Drug Use: None - RESPIRATORY Hx Respiratory Disorders: No - CARDIOVASCULAR Hx Cardio Disorders: No - NEURO Hx Neuro Disorders: Yes Hx Headaches: Yes - GI Hx GI Disorders: No - Hx Genitourinary Disorders: No - ENDOCRINE Hx Endocrine Disorders: No - MUSCULOSKELETAL Hx Musculoskeletal Disorders: No - PSYCH Hx Psych Problems: No - HEMATOLOGY/ONCOLOGY Hx Hematology/Oncology Disorders: No Family Medical History Any Significant Family History?: Yes Hx Diabetes: Grandparents Physical Exam - General General Appearance: Alert, Cooperative, No acute distress - Head Head exam: Atraumatic, Normocephalic, Normal inspection - Eye Eye exam: Normal appearance, PERRL - Neck Neck exam: Normal inspection, Full ROM. negative: Tenderness - Respiratory Respiratory exam: Normal lung sounds bilaterally. negative: Respiratory distress - Cardiovascular Cardiovascular Exam: Regular rate, Normal rhythm, Normal heart sounds - GI/Abdominal GI/Abdominal exam: Soft, Normal bowel sounds, Tenderness (There is mild epigastric tenderness but the abdomen is very soft.). negative: Distended, Guarding, Rebound, Rigid - Extremities Extremities exam: Normal inspection, Full ROM, Normal capillary refill. negative: Tenderness Image of Full Body: 1 - Area of pain and tenderness. Course Vital Signs 12/04/16 10:28 Temperature 98.4 F Pulse Rate 89 Respiratory 20 Rate Blood Pressure 94/62 Pulse Ox 100 - Reevaluation(s) Reevaluation #1: The patient is doing very well at this time. She denies any nausea, vomiting, or diarrhea here in the ER. On exam her repeat temp is 98.2 and her abdomen is very soft but with mild epigastric tenderness. There is no RLQ or LLQ tenderness. I did explain to the patient that her lab tests are mainly WNL's and there are no signs of any acute abdomen at this time. I do feel we need an US for her Gallbladder but am not able to order one at this time. The patient is to be discharged home on nausea medicine, Carafate and Bentyl and is to return to the ER at 8am for recheck and for a repeat abdominal exam. At that time we may order an US to evaluate her gallbladder. 12/04/16 12:54 Medical Decision Making - Data Complexity MDM Data: Labs Ordered and/or Reviewed - Lab Data Result diagrams: 12/04/16 10:45 12/04/16 10:45 Disposition Disposition: Discharge Clinical Impression: Abdominal pain Qualifiers: Abdominal location: epigastric Qualified Code(s): R10.13 - Epigastric pain Disposition: Home, Self-Care Instructions: Abdominal Pain (ED) Additional Instructions: Please take the prescribed medicines as directed. Please return to the ER at 8am tomorrow for recheck and repeat lab work. Please return sooner for any increased pain, vomiting, fever, or back pain. Prescriptions: Dicyclomine HCl [Bentyl] 10 mg PO Q8H #15 cap Ondansetron [Zofran Odt] 4 mg SL .Q4-6H PRN #12 tab.rapdis PRN Reason: Nausea Sucralfate [Carafate] 1 gm PO QID #28 tablet Forms: Patient Portal Access Time of Disposition: 12:59 Quality - Quality Measures Quality Measures: N/A - Blood Pressure Screening View Details: Yes Does Patient Have Any of the Following: No Blood Pressure Classification: Normal BP Reading Systolic Measurement: 94 Diastolic Measurement: 62 Screening for High Blood Pressure: < Normal BP, F/U Not Required > [G8783]
[2016-12-04] MEDS: ONDANSETRON HCL IV 4 MG/2 ML VIAL IV ONE (10:53)
[2016-12-04] MEDS: SUCRALFATE 1 G/10 ML UD PO ONE (10:54)
[2016-12-04] MEDS: 0.9 % SODIUM CHLORIDE 1,000 ML BAG IV ONE (10:54)
[2016-12-04 11:07] LABS: HEMATOCRIT 42.8 % (35.0-47.0); HEMOGLOBIN 14.7 gm/dl (11.6-16.0); MEAN CELL VOLUME 95.1 fl (81-97); MEAN CORPUSCULAR HEMOGLOBIN 32.7 pg (27-33); MEAN CORPUSCULAR HGB CONC 34.3 g/dl (32-36); MEAN PLATELET VOLUME 9.7 fl (7.4-10.4); PLATELET COUNT 263 K/uL (130-400); WHITE BLOOD COUNT W/O DIFF 8.3 K/uL (4.2-12.2)
[2016-12-04 11:20] LABS: PLATELET ESTIMATE NORMAL (NORMAL)
[2016-12-04 11:24] LABS: ALBUMIN 4.3 g/dL (4.0-5.0); ALKALINE PHOSPHATASE 59 U/L (35-104); ALT/SGPT 16 U/L (<33); AST/SGOT 24 U/L (10.0-35.0); BILIRUBIN,DIRECT 0.2 mg/dL (0-0.3); BLOOD UREA NITROGEN 22.2 mg/dL (12.6-42.6); CREATININE 0.7 mg/dL (0.5-0.9); EST GLOMERULAR FILTRATION RATE > 60 mL/min; GLUCOSE,RANDOM 80 mg/dL (74-109); LIPASE 18 U/L (13-60); TOTAL PROTEIN 6.9 g/dL (6.6-8.7)
[2016-12-04] MEDS: MAGNESIUM HYDROXIDE/AL HYDROX 30 ML, LIDOCAINE VISC 2% 200 MG PO ONE ×2 (11:44)
[2016-12-04 12:00] LABS: URINE APPEARANCE CLEAR; URINE BILIRUBIN NEGATIVE (NEGATIVE); URINE BLOOD NEGATIVE (NEGATIVE); URINE COLOR YELLOW; URINE GLUCOSE (UA) NEGATIVE (NEGATIVE); URINE KETONE 40 mg/dL (NEGATIVE); URINE LEUKOCYTE ESTERASE NEGATIVE (NEGATIVE); URINE NITRITE NEGATIVE (NEGATIVE); URINE PROTEIN TRACE (NEGATIVE); URINE UROBILINOGEN 0.2 E.U./dL (0.20 - 1.00)
[2016-12-04 12:02] LABS: HCG,QUALITATIVE URINE NEGATIVE (NEGATIVE)
[2016-12-04] MEDS ORDERED: 0.9 % SODIUM CHLORIDE 1,000 ML BAG IV ONE (12:07)
[2016-12-04] MEDS: DICYCLOMINE HCL 10 MG/ML AMPUL IM ONE (12:13)
== END 2016-12-04 13:10 | disposition home or self-care (01) ==
LOC: ER 10:19
DX: R10.13 Epigastric pain (principal); R11.2 Nausea with vomiting, unspecified; R19.7 Diarrhea, unspecified
CPT/HCPCS: 99284 ×2; 96374; 96372; 96361; 83690; 80076; 80048; 81003; 81025; 85027; J2405; J7030

== ENCOUNTER 2016-12-05 07:50 | Emergency (ER) | payer OTHER ==
--- NOTE | 2016-12-05 08:10 | Emergency Department Record ---
History of Present Illness - General Chief Complaint: Recheck - Other Stated Complaint: RETURN VISIT FOR U/S Time Seen by Provider: 12/05/16 08:00 Source: Patient Mode of arrival: Ambulatory Limitations: No limitations - History of Present Illness Initial Comments: The patient is here due to a 2-3 day hx of upper abdominal pain. The pain is sharp and crampy and was initially associated with nausea, vomiting, and diarrhea but that did resolve yesterday. The pain does not radiate to the back and is slightly increased with eating. She was in the ED yesterday and had a neg workup with labwork. Now due to the pain persisting she is here for an US. She denies any vaginal issues or pain. MD Complaint: Other Onset/Timin -: Days(s) Initial Visit For: Other Returns Today for: Other Symptoms Since Prior Visit: No new symptoms Associated Symptoms: Abdominal pain - Related Data Previous Rx's Medication Instructions Recorded Dicyclomine HCl [Bentyl] 10 mg PO Q8H #15 cap 12/04/16 Ondansetron [Zofran Odt] 4 mg SL .Q4-6H PRN #12 tab.rapdis 12/04/16 Sucralfate [Carafate] 1 gm PO QID #28 tablet 12/04/16 Hydrocodone/Acetaminophen [[place] 1 - 2 each PO QID #20 tablet 12/05/16 5-325 Tablet] Prednisone [Prednisone 20Mg] 40 mg PO DAILY #10 tab 12/05/16 Allergies Allergy/AdvReac Type Severity Reaction Status Date / Time cyclobenzaprine HCl Allergy Intermediate DIZZINESS Verified 12/04/16 10:33 [From Flexeril] ibuprofen Allergy Intermediate GI upset, Verified 12/04/16 10:33 red patches Travel Screening - Travel/Exposure Within Last 30 Days Have you traveled within the last 30 days?: No Review of Systems Constitutional: Denies: Chills, Fever Eyes: Denies: Eye discharge ENT: Denies: Congestion Respiratory: Denies: Cough, Dyspnea Past Medical History - SOCIAL HISTORY Smoking Status: Current every day smoker - RESPIRATORY Hx Respiratory Disorders: No - CARDIOVASCULAR Hx Cardio Disorders: No - NEURO Hx Neuro Disorders: Yes Hx Headaches: Yes - GI Hx GI Disorders: No Hx Liver Disease: Yes (elevated enzymes) - Hx Genitourinary Disorders: No - ENDOCRINE Hx Endocrine Disorders: No - MUSCULOSKELETAL Hx Musculoskeletal Disorders: No Comment:: Herpes zoster - PSYCH Hx Psych Problems: No - HEMATOLOGY/ONCOLOGY Hx Hematology/Oncology Disorders: No Family Medical History Any Significant Family History?: Yes Hx Diabetes: Grandparents Physical Exam - General General Appearance: Alert, Cooperative, No acute distress - Head Head exam: Atraumatic - Eye Eye exam: Normal appearance, PERRL - Neck Neck exam: Normal inspection, Full ROM. negative: Tenderness - Respiratory Respiratory exam: Normal lung sounds bilaterally. negative: Respiratory distress - Cardiovascular Cardiovascular Exam: Regular rate, Normal rhythm, Normal heart sounds - GI/Abdominal GI/Abdominal exam: Soft, Tenderness (There is mild epigastric tenderness.). negative: Guarding, Organomegaly, Rebound, Rigid - Extremities Extremities exam: Normal inspection, Full ROM, Normal capillary refill. negative: Tenderness Course Vital Signs 12/05/16 07:57 Temperature 98.6 F Pulse Rate 104 H Respiratory 18 Rate Blood Pressure 108/82 Pulse Ox 100 - Reevaluation(s) Reevaluation #1: The patient is feeling better after the Morphine. Her US did not identify any cause for pain so we will order a CT to be sure there is no surgical pathology present. 12/05/16 09:30 Reevaluation #2: The patient is resting comfortably and is waiting on the CT presently. 12/05/16 10:03 Reevaluation #3: The patient is doing well. I did discuss the CT findings with possible Colitis and will place the patient on [place] for home and a short course of Prednisone. She is to F/U with GI next week for further eval. 12/05/16 11:42 Medical Decision Making - Data Complexity MDM Data: Labs Ordered and/or Reviewed, X-Ray Ordered and/or Reviewed - Lab Data Result diagrams: 12/05/16 08:10 12/05/16 08:10 - Radiology Data Radiology results: Report reviewed (US: Gallbladder contracted with no stones. Abd/pelvis CT: possible colitis in the transverse colon. O/W neg.) Disposition Disposition: Discharge Clinical Impression: Abdominal pain Qualifiers: Abdominal location: unspecified location Qualified Code(s): R10.9 - Unspecified abdominal pain Disposition: Home, Self-Care Condition: (2) Stable Instructions: Colitis (ED) Additional Instructions: Please use Tylenol or [place] for pain. Please F[facility]U in the [facility] next week. Return to the ER for any increasing pain, fever, vomiting, or bleeding. Prescriptions: Hydrocodone/Acetaminophen [[place] 5-325 Tablet] 1 - 2 each PO QID #20 tablet Prednisone [Prednisone 20Mg] 40 mg PO DAILY #10 tab Referrals: [facility] [Provider Group] Forms: Patient Portal Access Time of Disposition: 11:46 Quality - Quality Measures Quality Measures: N/A - Blood Pressure Screening View Details: Yes Does Patient Have Any of the Following: No Blood Pressure Classification: Normal BP Reading Systolic Measurement: 100 Diastolic Measurement: 64 Screening for High Blood Pressure: < Normal BP, F/U Not Required > [G8783]
[2016-12-05] MEDS: 0.9 % SODIUM CHLORIDE 1,000 ML BAG IV ONE (08:14)
[2016-12-05 08:20] LABS: BASO % 0.4 % (0-6); EOS % 1.5 % (0-6); GRAN % 65.5 % (47-80); HEMATOCRIT 43.2 % (35.0-47.0); HEMOGLOBIN 14.6 gm/dl (11.6-16.0); LYMPH % 22.5 % (16-45); MEAN CELL VOLUME 94.9 fl (81-97); MEAN CORPUSCULAR HEMOGLOBIN 32.1 pg (27-33); MEAN CORPUSCULAR HGB CONC 33.8 g/dl (32-36); MEAN PLATELET VOLUME 9.5 fl (7.4-10.4); MONO % 10.1 % (0-9); PLATELET COUNT 268 K/uL (130-400); RED BLOOD COUNT 4.55 M/uL (3.80-5.40); RED CELL DISTRIBUTION WIDTH 13.1 % (11.5-14.5); WHITE BLOOD COUNT W/O DIFF 5.3 K/uL (4.2-12.2)
[2016-12-05 08:36] LABS: ALKALINE PHOSPHATASE 58 U/L (35-104); ALT/SGPT 20 U/L (<33); AST/SGOT 19 U/L (10.0-35.0); BILIRUBIN,DIRECT 0.2 mg/dL (0-0.3); BLOOD UREA NITROGEN 15.8 mg/dL (12.6-42.6); CREATININE 0.7 mg/dL (0.5-0.9); EST GLOMERULAR FILTRATION RATE > 60 mL/min; GLUCOSE,RANDOM 101 mg/dL (74-109); LIPASE 26 U/L (13-60); TOTAL PROTEIN 6.5 g/dL (6.6-8.7)
[2016-12-05 08:41] LABS: BILIRUBIN,TOTAL < 0.20 mg/dL (0.2-1.0)
[2016-12-05] MEDS: MORPHINE SULFATE 5 MG/ML PFS IVP ONE (08:55)
[2016-12-05] MEDS: ONDANSETRON HCL IV 4 MG/2 ML VIAL IVP ONE (08:55)
[2016-12-05] MEDS: NICOTINE 7 MG/24 HOUR PATCH TD SCH (09:42)
--- NOTE | 2016-12-06 05:55 | ULTRASOUND REPORT ---
DATE: 12/05/2016. EXAM: ULTRASOUND OF THE ABDOMEN. HISTORY: Abdominal pain. TECHNIQUE: Sonographic evaluation of the abdomen was performed using edge- scale imaging. FINDINGS: The liver appears homogeneous. No focal hepatic mass. The gallbladder is contracted. No gallstones or ductal dilatation. The common bile duct measures 3.0 mm. There is equivocal mild gallbladder wall thickening. The pancreas and spleen appear normal. The kidneys are normal in size with no hydronephrosis or nephrolithiasis. The abdominal aorta and inferior vena cava are patent. IMPRESSION: CONTRACTED GALLBLADDER. NO GALLSTONES OR DUCTAL DILATATION. JOB NUMBER: [id number] MTDD
--- NOTE | 2016-12-06 07:10 | CT SCAN REPORT ---
DATE: . EXAM: CT OF THE ABDOMEN AND PELVIS WITH CONTRAST. HISTORY: Mid abdominal pain. TECHNIQUE: Sequential axial images were obtained from the diaphragms through the ischiorectal fossa after intravenous and oral administration of 100 mL of Omnipaque 300 contrast material. FINDINGS: The visualized lung bases appear normal. The liver appears normal. The gallbladder, pancreas, and spleen appear normal. The adrenal glands and kidneys appear normal. The small bowel appears normal. There is apparent mild wall thickening of the transverse colon. Nonspecific colitis is considered. The uterus and adnexal structures are normal. The urinary bladder appears normal. The appendix is visualized and appears normal. The osseus structures are normal. IMPRESSION: 1. LONG SEGMENT OF WALL THICKENING INVOLVING THE TRANSVERSE COLON. NONSPECIFIC COLITIS IS CONSIDERED. 2. THE APPENDIX IS VISUALIZED AND APPEARS NORMAL. 3. THE UTERUS AND ADNEXAL STRUCTURES APPEAR NORMAL. JOB NUMBER: [id number] MTDD
== END 2016-12-05 11:55 | disposition home or self-care (01) ==
LOC: ER 07:50
DX: R10.13 Epigastric pain (principal); K52.9 Noninfective gastroenteritis and colitis, unspecified
CPT/HCPCS: 99284 ×2; 96374; 96375; 83690; 85025; 80076; 80048; 76700; 74177; Q9967; J2405; J2270; J7030

== ENCOUNTER 2017-01-23 17:24 | Emergency (ER) | payer MEDICAID, OTHER ==
[2017-01-23] MEDS ORDERED: HYDROMORPHONE HCL 1MG/ML **SYRINGE IM ONE (18:15)
--- NOTE | 2017-01-23 18:16 | Emergency Department Record ---
History of Present Illness - General Chief Complaint: Abdominal Pain Stated Complaint: GROIN PAIN Time Seen by Provider: 01/23/17 17:57 Source: Patient Mode of Arrival: Ambulatory Limitations: No limitations - History of Present Illness Initial Comments: 26 yo female presents with tenderness, redness and swelling in the right groin area. The area started with a small area of redness and swelling. She noted that throughout the workday today the area increased with inflammation and pain. No draining but it came to a head. It is lateral to the labia. No dysuria. No history of similar in the past. MD Complaint: Other (Sore in the groin) Onset/Timin -: Days(s) Radiation: None Migration to: No migration Severity: Severe Quality: Aching Consistency: Constant Improves With: Nothing Worsens With: Nothing Associated Symptoms: Denies other symptoms - Related Data LMP Date: 12/31/16 Patient : No Previous Rx's Medication Instructions Recorded Cephalexin [Keflex] 500 mg PO QID #28 cap 01/23/17 Hydrocodone/Acetaminophen [[place] 1 each PO Q6H #15 tablet 01/23/17 5-325 Tablet] Sulfamethoxazole/Trimethoprim 1 each PO BID #14 tablet 01/23/17 [Bactrim Ds Tablet] Allergies Allergy/AdvReac Type Severity Reaction Status Date / Time cyclobenzaprine HCl AdvReac Intermediate DIZZINESS Verified 01/23/17 17:52 [From Flexeril] ibuprofen AdvReac Intermediate GI upset, Verified 01/23/17 17:52 red patches Travel Screening - Travel/Exposure Within Last 30 Days Have you traveled within the last 30 days?: No Review of Systems Constitutional: Denies: Chills, Fever, Weakness Eyes: Denies: Eye discharge ENT: Denies: Congestion, Throat pain Respiratory: Denies: Cough Cardiovascular: Denies: Chest pain, Syncope Endocrine: Denies: Fatigue Gastrointestinal: Reports: Other (groin abscess). Denies: Abdominal pain, Diarrhea, Nausea, Vomiting Genitourinary: Denies: Dysuria Musculoskeletal: Denies: Arthralgia, Back pain, Myalgia, Neck pain Skin: Reports: As per HPI, Change in color, Other (abscess). Denies: Bruising Neurological: Denies: Headache Psychiatric: Denies: Anxiety Hematological/Lymphatic: Denies: Blood Clots, Easy bleeding, Easy bruising Past Medical History - SOCIAL HISTORY Smoking Status: Current every day smoker Alcohol Use: None Drug Use: None - RESPIRATORY Hx Respiratory Disorders: No - CARDIOVASCULAR Hx Cardio Disorders: No - NEURO Hx Neuro Disorders: Yes Hx Headaches: Yes - GI Hx GI Disorders: No Hx Liver Disease: Yes (elevated enzymes) - Hx Genitourinary Disorders: No - ENDOCRINE Hx Endocrine Disorders: No - MUSCULOSKELETAL Hx Musculoskeletal Disorders: No Comment:: Herpes zoster - PSYCH Hx Psych Problems: No - HEMATOLOGY/ONCOLOGY Hx Hematology/Oncology Disorders: No Family Medical History Any Significant Family History?: Yes Hx Diabetes: Grandparents Physical Exam - General General Appearance: Alert, Oriented x3, Cooperative - Head Head exam: Atraumatic, Normocephalic, Normal inspection - Eye Eye exam: Normal appearance - ENT ENT exam: Normal exam Ear exam: Normal external inspection Nasal Exam: Normal inspection - Neck Neck exam: Normal inspection - GI/Abdominal GI/Abdominal exam: Soft. negative: Tenderness - Rectal Rectal exam: Deferred - exam: Normal external exam - Extremities Extremities exam: Normal inspection, Full ROM, Normal capillary refill. negative: Tenderness - Back Back exam: Reports: Normal inspection, Full ROM. Denies: Muscle spasm, Rash noted, Tenderness - Neurological Neurological exam: Alert, Normal gait, Oriented X3 - Psychiatric Psychiatric exam: Normal affect, Normal mood. negative: Agitated, Anxious - Skin Skin exam: Dry, Erythema, Intact, Warm Type of lesion: Abscess (Right inguinal 1cm x 2cm with head. No current draining) Course Vital Signs 01/23/17 17:48 Temperature 98.2 F Pulse Rate 99 H Respiratory 16 Rate Blood Pressure 126/89 Pulse Ox 100 - Reevaluation(s) Reevaluation #1: Procedure Abscess I and D Betadine prep Local Lidocaine with Epi 3ml 11 blade use to open the abscess Moderate pus expressed The cavity was cleared of pus then irrigated with NS copiously 1.4 inch packing was placed without difficulty The patient tolerated well We discussed home care, reasons for immediate return and follow up in the ED in 2 days for a wound check She was DC'd on Keflex and Bactrim 01/23/17 18:26 Disposition Disposition: Discharge Clinical Impression: Abscess of groin, right Disposition: Home, Self-Care Condition: (1) Good Instructions: Abscess (ED) Additional Instructions: Leave the packing in the next 2 days Return in 2 days for a wound check and to remove the packing Take the Antibiotics as directed Home from work tomorrow you have a culture of the wound that will be available in 2-3 days Prescriptions: Cephalexin [Keflex] 500 mg PO QID #28 cap Hydrocodone/Acetaminophen [[place] 5-325 Tablet] 1 each PO Q6H #15 tablet Sulfamethoxazole/Trimethoprim [Bactrim Ds Tablet] 1 each PO BID #14 tablet Forms: Patient Portal Access Time of Disposition: 08:17 Quality - Quality Measures Quality Measures: N/A - Blood Pressure Screening Does Patient Have Any of the Following: No Blood Pressure Classification: Pre-Hypertensive BP Reading Systolic Measurement: 126 Diastolic Measurement: 89 Screening for High Blood Pressure: < Pre-Hypertensive BP, F/U Documented > [ G8950] Pre-Hypertensive Follow-up Interventions: Referral to alternative/primary care provider.
[2017-01-23] MEDS ORDERED: CEPHALEXIN 500 MG CAPSULE PO STA (18:28)
[2017-01-23] MEDS ORDERED: TMP/SMZ 160MG/800MG TAB PO ONE (18:28)
== END 2017-01-23 18:54 | disposition home or self-care (01) ==
LOC: ER 17:24
DX: L02.214 Cutaneous abscess of groin (principal); F17.210 Nicotine dependence, cigarettes, uncomplicated
CPT/HCPCS: 10060 ×2; 99284 ×2; 96372; J3490; J1170

== ENCOUNTER 2017-01-25 12:46 | Emergency (ER) | payer OTHER ==
--- NOTE | 2017-01-25 13:10 | Emergency Department Record ---
History of Present Illness - General Chief Complaint: Wound, check Stated Complaint: REPACK WOUND/GROIN Time Seen by Provider: 01/25/17 13:10 Source: Patient, RN notes reviewed - History of Present Illness Initial Comments: reviewed Dr. Rasmussen chart and patient stated less swollen and less painful but she requested more pain pills. MD Complaint: Wound re-check Onset/Timin Initial Visit For: Abscess Returns Today for: Wound recheck Symptoms Since Prior Visit: No new symptoms - Related Data Previous Rx's Medication Instructions Recorded Cephalexin [Keflex] 500 mg PO QID #28 cap 01/23/17 Hydrocodone/Acetaminophen [[place] 1 each PO Q6H #15 tablet 01/23/17 5-325 Tablet] Sulfamethoxazole/Trimethoprim 1 each PO BID #14 tablet 01/23/17 [Bactrim Ds Tablet] Hydrocodone/Acetaminophen [[place] 1 each PO Q6HR #10 tablet 01/25/17 5-325 Tablet] Allergies Allergy/AdvReac Type Severity Reaction Status Date / Time cyclobenzaprine HCl AdvReac Intermediate DIZZINESS Verified 01/23/17 17:52 [From Flexeril] ibuprofen AdvReac Intermediate GI upset, Verified 01/23/17 17:52 red patches Travel Screening - Travel/Exposure Within Last 30 Days Have you traveled within the last 30 days?: No - Travel/Exposure Within Last Year Have you traveled outside the [place] in the last year?: No - Additonal Travel Details Have you been exposed to anyone with a communicable illness?: No - Travel Symptoms Symptom Screening: None Review of Systems Reviewed: No additional complaints except as noted below Constitutional: Reports: As per HPI. Denies: Chills, Fever, Malaise, Night sweats, Weakness, Weight change Eyes: Reports: As per HPI. Denies: Eye discharge, Eye pain, Photophobia, Vision change ENT: Reports: As per HPI. Denies: Congestion, Dental pain, Ear pain, Epistaxis , Hearing loss, Throat pain Respiratory: Reports: As per HPI. Denies: Cough, Dyspnea, Hemoptysis, Stridor, Wheezes Cardiovascular: Reports: As per HPI. Denies: Arrhythmia, Chest pain, Dyspnea on exertion, Edema, Murmurs, Orthopnea, Palpitations, Paroxysmal nocturnal dyspnea, Rheumatic Fever, Syncope Endocrine: Reports: As per HPI. Denies: Fatigue, Heat or cold intolerance, Polydipsia, Polyuria Gastrointestinal: Reports: As per HPI. Denies: Abdominal pain, Constipation, Diarrhea, Hematemesis, Hematochezia, Melena, Nausea, Vomiting Genitourinary: Reports: As per HPI. Denies: Abnormal menses, Discharge, Dyspareunia, Dysuria, Frequency, Hematuria, Incontinence, Retention, Urgency Musculoskeletal: Reports: As per HPI. Denies: Arthralgia, Back pain, Gout, Joint swelling, Myalgia, Neck pain Skin: Reports: As per HPI. Denies: Bruising, Change in color, Change in hair/ nails, Lesions, Pruritus, Rash Neurological: Reports: As per HPI. Denies: Abnormal gait, Confusion, Headache, Numbness, Paresthesias, Seizure, Tingling, Tremors, Vertigo, Weakness Psychiatric: Reports: As per HPI. Denies: Anxiety, Auditory hallucinations, Depression, Homicidal thoughts, Suicidal thoughts, Visual hallucinations Hematological/Lymphatic: Reports: As per HPI. Denies: Anemia, Blood Clots, Easy bleeding, Easy bruising, Swollen glands Past Medical History - SOCIAL HISTORY Smoking Status: Current every day smoker Alcohol Use: None Drug Use: None - RESPIRATORY Hx Respiratory Disorders: No - CARDIOVASCULAR Hx Cardio Disorders: No - NEURO Hx Neuro Disorders: Yes Hx Headaches: Yes - GI Hx GI Disorders: No Hx Liver Disease: Yes (elevated enzymes) - Hx Genitourinary Disorders: No - ENDOCRINE Hx Endocrine Disorders: No - MUSCULOSKELETAL Hx Musculoskeletal Disorders: No Comment:: Herpes zoster - PSYCH Hx Psych Problems: No - HEMATOLOGY/ONCOLOGY Hx Hematology/Oncology Disorders: No Family Medical History Any Significant Family History?: Yes Hx Diabetes: Grandparents Physical Exam - General General Appearance: Alert, Oriented x3, Cooperative, No acute distress - Head Head exam: Normal inspection - Eye Eye exam: Normal appearance, PERRL Pupils: Normal accommodation - ENT ENT exam: Normal exam, Mucous membranes moist, Normal external ear exam, Normal orophraynx, TM's normal bilaterally Ear exam: Normal external inspection. negative: External canal tenderness Nasal Exam: Normal inspection. negative: Discharge, Sinus tenderness Mouth exam: Normal external inspection, Tongue normal Teeth exam: Normal inspection. negative: Dental caries Throat exam: Normal inspection. negative: Tonsillar erythema, Tonsillar exudate - Neck Neck exam: Normal inspection, Full ROM. negative: Tenderness - Respiratory Respiratory exam: Normal lung sounds bilaterally. negative: Respiratory distress - Cardiovascular Cardiovascular Exam: Regular rate, Normal rhythm, Normal heart sounds - GI/Abdominal GI/Abdominal exam: Soft, Normal bowel sounds. negative: Tenderness - Rectal Rectal exam: Deferred - exam: Deferred - Extremities Extremities exam: Normal inspection, Full ROM, Normal capillary refill. negative: Tenderness - Back Back exam: Reports: Normal inspection, Full ROM. Denies: Muscle spasm, Rash noted, Tenderness - Neurological Neurological exam: Alert, Normal gait, Oriented X3, Reflexes normal - Psychiatric Psychiatric exam: Normal affect, Normal mood - Skin Type of lesion: Abscess (packing removed and recommended warm compresses) Course Vital Signs 01/25/17 12:52 Temperature 98.0 F Pulse Rate 102 H Respiratory 18 Rate Blood Pressure 118/92 Pulse Ox 100 - Reevaluation(s) Reevaluation #1: packing removed looks good 01/25/17 13:26 Disposition Clinical Impression: Abscess re-check Disposition: Home, Self-Care Condition: (1) Good Instructions: Wound Infection (ED) Additional Instructions: follow up with family Dr on monday. please give family Dr. List Prescriptions: Hydrocodone/Acetaminophen [[place] 5-325 Tablet] 1 each PO Q6HR #10 tablet Forms: Patient Portal Access Time of Disposition: 13:26 Quality - Quality Measures Quality Measures: N/A - Blood Pressure Screening Does Patient Have Any of the Following: No Blood Pressure Classification: Hypertensive Reading Systolic Measurement: 118 Diastolic Measurement: 92 Screening for High Blood Pressure: < First Hypertensive BP, F/U Documented > [ G8950] First Hypertensive Follow-up Interventions: Referral to alternative/primary care provider.
== END 2017-01-25 13:39 | disposition home or self-care (01) ==
LOC: ER 12:46
DX: L02.214 Cutaneous abscess of groin (principal)
CPT/HCPCS: 99282

== ENCOUNTER 2017-04-13 11:44 | Emergency (ER) | payer OTHER ==
[2017-04-13] MEDS ORDERED: ONDANSETRON HCL IV 4 MG/2 ML VIAL IVP ONE (11:55)
[2017-04-13] MEDS ORDERED: 0.9 % SODIUM CHLORIDE 1,000 ML BAG IV ONE (11:55)
[2017-04-13] MEDS ORDERED: OSTELTAMIVIR 75 MG CAP PO ONE (11:55)
--- NOTE | 2017-04-13 12:10 | Emergency Department Record ---
History of Present Illness - General Chief complaint: Flu Like Symptoms Stated complaint: FLU Time Seen by Provider: 04/13/17 11:54 Source: Patient Mode of Arrival: Ambulatory Limitations: No limitations - History of Present Illness Initial comments: 26 yo female presents with cough that is non productive, fevers, chills, body aches, headaches, nausea and vomiting. No diarrhea. No rash. Her significant other is also ill. She did not have a flu shot this year. She is a smoker. She has keep little down in the last 24 hours. MD Complaint: Generalized weakness Onset/Timin -: Days(s) Severity: Moderate Improves with: None Worsens with: None Associated Symptoms: Fever/chills - Related Data Previous Rx's Medication Instructions Recorded Ondansetron [Zofran Odt] 4 mg PO Q8H #20 tab.rapdis 04/13/17 Allergies Allergy/AdvReac Type Severity Reaction Status Date / Time cyclobenzaprine HCl AdvReac Intermediate DIZZINESS Verified 01/23/17 17:52 [From Flexeril] ibuprofen AdvReac Intermediate GI upset, Verified 01/23/17 17:52 red patches Travel Screening - Travel/Exposure Within Last 30 Days Have you traveled within the last 30 days?: No - Travel/Exposure Within Last Year Have you traveled outside the [place] in the last year?: No - Additonal Travel Details Have you been exposed to anyone with a communicable illness?: No - Travel Symptoms Symptom Screening: None Review of Systems Constitutional: Reports: Chills, Fever, Malaise Eyes: Denies: Eye discharge, Eye pain, Photophobia, Vision change ENT: Reports: Congestion, Throat pain. Denies: Ear pain, Epistaxis Respiratory: Reports: Cough. Denies: Dyspnea, Hemoptysis, Stridor, Wheezes Cardiovascular: Denies: Chest pain, Syncope Endocrine: Denies: Fatigue Gastrointestinal: Reports: Nausea, Vomiting. Denies: Abdominal pain, Diarrhea Genitourinary: Denies: Dysuria, Urgency Musculoskeletal: Reports: Myalgia. Denies: Arthralgia, Back pain Skin: Denies: Bruising, Change in color, Rash Neurological: Reports: Headache. Denies: Confusion, Numbness, Vertigo, Weakness Psychiatric: Denies: Anxiety Hematological/Lymphatic: Denies: Blood Clots, Easy bleeding, Easy bruising, Swollen glands Past Medical History - SOCIAL HISTORY Smoking Status: Current every day smoker Alcohol Use: None Drug Use: None - RESPIRATORY Hx Respiratory Disorders: No - CARDIOVASCULAR Hx Cardio Disorders: No - NEURO Hx Neuro Disorders: No Hx Headaches: No - GI Hx GI Disorders: No Hx Liver Disease: No - Hx Genitourinary Disorders: No - ENDOCRINE Hx Endocrine Disorders: No - MUSCULOSKELETAL Hx Musculoskeletal Disorders: No Comment:: Herpes zoster - PSYCH Hx Psych Problems: No - HEMATOLOGY/ONCOLOGY Hx Hematology/Oncology Disorders: No Family Medical History Any Significant Family History?: Yes Hx Diabetes: Grandparents Physical Exam - General General Appearance: Alert, Oriented x3, Cooperative, No acute distress Limitations: No limitations - Head Head exam: Normal inspection - Eye Eye exam: Normal appearance, PERRL. negative: Conjunctival injection, Scleral icterus - ENT ENT exam: Normal exam, Mucous membranes moist Ear exam: Normal external inspection Nasal Exam: Discharge (clear). negative: Normal inspection Mouth exam: Normal external inspection - Neck Neck exam: Normal inspection, Full ROM. negative: Tenderness - Respiratory Respiratory exam: Normal lung sounds bilaterally. negative: Respiratory distress, Rhonchi, Stridor, Wheezes - Cardiovascular Cardiovascular Exam: Regular rate, Normal rhythm, Normal heart sounds - GI/Abdominal GI/Abdominal exam: Soft. negative: Tenderness - Rectal Rectal exam: Deferred - exam: Deferred - Extremities Extremities exam: Normal inspection, Full ROM, Normal capillary refill. negative: Tenderness - Back Back exam: Reports: Normal inspection, Full ROM. Denies: Muscle spasm, Rash noted, Tenderness - Neurological Neurological exam: Alert, Normal gait, Oriented X3 - Psychiatric Psychiatric exam: Normal affect, Normal mood - Skin Skin exam: Dry, Intact, Normal color, Warm Course Vital Signs 04/13/17 11:50 Temperature 98.8 F Pulse Rate 137 H Respiratory 20 Rate Blood Pressure 153/118 Pulse Ox 99 - Reevaluation(s) Reevaluation #1: 04/13/17 12:09 Influenza swab, labs, and IVF ordered 04/13/17 12:52 No acute changes on the CBC The Influenza are negative 04/13/17 12:57 The CMP was reviewed AG 20 and TBili 1.4 otherwise negative She is feeling much improved and ready for DC 04/13/17 13:31 vitals improved, tolerating PO very well, I offered 2nd liter but she is ready for DC Medical Decision Making - Lab Data Result diagrams: 04/13/17 12:30 04/13/17 12:30 Disposition Disposition: Discharge Clinical Impression: Viral syndrome Vomiting Qualifiers: Vomiting type: unspecified Vomiting Intractability: non-intractable Nausea presence: unspecified Qualified Code(s): R11.10 - Vomiting, unspecified Disposition: Home, Self-Care Condition: (1) Good Instructions: Dehydration (ED), Influenza (ED) Additional Instructions: Rest and stay well hydrated Return if worse, vomiting, any new symptoms or concerns Prescriptions: Ondansetron [Zofran Odt] 4 mg PO Q8H #20 tab.rapdis Forms: Patient Portal Access Time of Disposition: 13:01 Quality - Quality Measures Quality Measures: N/A - Blood Pressure Screening Does Patient Have Any of the Following: No Blood Pressure Classification: Hypertensive Reading Systolic Measurement: 153 Diastolic Measurement: 118 Screening for High Blood Pressure: < Pre-Hypertensive BP, F/U Documented > [ G8950] Pre-Hypertensive Follow-up Interventions: Referral to alternative/primary care provider.
[2017-04-13 12:41] LABS: BASO % 0.2 % (0-6); EOS % 0.5 % (0-6); HEMATOCRIT 47.2 % (35.0-47.0); HEMOGLOBIN 16.4 gm/dl (11.6-16.0); MEAN CELL VOLUME 95.5 fl (81-97); MEAN CORPUSCULAR HGB CONC 34.7 g/dl (32-36); MEAN PLATELET VOLUME 9.4 fl (7.4-10.4); MONO % 8.3 % (0-9); PLATELET COUNT 330 K/uL (130-400); RED BLOOD COUNT 4.94 M/uL (3.80-5.40); RED CELL DISTRIBUTION WIDTH 14.3 % (11.5-14.5); WHITE BLOOD COUNT W/O DIFF 9.9 K/uL (4.2-12.2)
[2017-04-13 12:42] LABS: MEAN CORPUSCULAR HEMOGLOBIN 33.1 pg (27-33)
[2017-04-13 12:42] LABS: INFLUENZA A NEGATIVE (NEGATIVE); INFLUENZA B NEGATIVE (NEGATIVE)
[2017-04-13 12:51] LABS: BLOOD UREA NITROGEN 12 mg/dL (6-20); CREATININE 0.6 mg/dL (0.5-0.9); EST GLOMERULAR FILTRATION RATE > 60 mL/min
[2017-04-13 12:53] LABS: GLUCOSE,RANDOM 101 mg/dL (74-109)
[2017-04-13 12:56] LABS: ALBUMIN 5.3 g/dL (4.0-5.0); ALKALINE PHOSPHATASE 107 U/L (35-104); ALT/SGPT 18 U/L (<33); AST/SGOT 24 U/L (10.0-35.0)
== END 2017-04-13 13:42 | disposition home or self-care (01) ==
LOC: ER 11:44
DX: B34.9 Viral infection, unspecified (principal); R53.1 Weakness; R11.10 Vomiting, unspecified; R05 Cough; F17.210 Nicotine dependence, cigarettes, uncomplicated
CPT/HCPCS: 99284 ×2; 96374; 96361; 85025; 80053; 87400; J2405; J7030

== ENCOUNTER 2017-09-02 10:24 | Emergency (ER) | payer OTHER ==
[2017-09-02 11:09] LABS: URINE APPEARANCE CLEAR; URINE BILIRUBIN NEGATIVE (NEGATIVE); URINE BLOOD SMALL (NEGATIVE); URINE COLOR YELLOW; URINE GLUCOSE (UA) NEGATIVE (NEGATIVE); URINE KETONE TRACE (NEGATIVE); URINE LEUKOCYTE ESTERASE MODERATE (NEGATIVE); URINE NITRITE NEGATIVE (NEGATIVE); URINE PROTEIN NEGATIVE (NEGATIVE); URINE UROBILINOGEN 0.2 E.U./dL (0.20 - 1.00)
[2017-09-02 11:15] LABS: URINE BACTERIA 1+; URINE RBC 0 - 2 (NONE SEEN)
--- NOTE | 2017-09-02 11:35 | Emergency Department Record ---
History of Present Illness - General Chief complaint: Female Urogenital Problem Stated complaint: UTI Time Seen by Provider: 09/02/17 11:21 Source: Patient Mode of Arrival: Ambulatory Limitations: No limitations - History of Present Illness Initial comments: The patient is here due to a 2 week hx of mild dysuria. She denies any AP, nausea, vomiting, fever, or back pain. She states she did recently have a UTI but is not sure what she took for it. MD Complaint: Dysuria Onset/Timin -: Days(s) Location: Other Quality: Burning Consistency: Constant Improves with: None Worsens with: Urination Patient : No Associated Symptoms: Denies other symptoms - Related Data Previous Rx's Medication Instructions Recorded Ondansetron [Zofran Odt] 4 mg PO Q8H #20 tab.rapdis 04/13/17 Nitrofurantoin [place] [Macrobid] 100 mg PO BID #10 capsule 09/02/17 Allergies Allergy/AdvReac Type Severity Reaction Status Date / Time cyclobenzaprine HCl AdvReac Intermediate DIZZINESS Verified 01/23/17 17:52 [From Flexeril] ibuprofen AdvReac Intermediate GI upset, Verified 01/23/17 17:52 red patches Travel Screening - Travel/Exposure Within Last 30 Days Have you traveled within the last 30 days?: No Review of Systems Constitutional: Denies: Chills, Fever Past Medical History - SOCIAL HISTORY Smoking Status: Current every day smoker - RESPIRATORY Hx Respiratory Disorders: No - CARDIOVASCULAR Hx Cardio Disorders: No - NEURO Hx Neuro Disorders: No Hx Headaches: No - GI Hx GI Disorders: No Hx Liver Disease: No - Hx Genitourinary Disorders: No - ENDOCRINE Hx Endocrine Disorders: No - MUSCULOSKELETAL Hx Musculoskeletal Disorders: No Comment:: Herpes zoster - PSYCH Hx Psych Problems: No - HEMATOLOGY/ONCOLOGY Hx Hematology/Oncology Disorders: No Family Medical History Any Significant Family History?: Yes Hx Diabetes: Grandparents Physical Exam - General General Appearance: Alert, Oriented x3, Cooperative, No acute distress - Head Head exam: Atraumatic, Normocephalic, Normal inspection - Eye Eye exam: Normal appearance, PERRL - Neck Neck exam: Normal inspection, Full ROM. negative: Tenderness - Respiratory Respiratory exam: Normal lung sounds bilaterally. negative: Respiratory distress - Cardiovascular Cardiovascular Exam: Regular rate, Normal rhythm, Normal heart sounds, Tachycardia - GI/Abdominal GI/Abdominal exam: Soft, Normal bowel sounds. negative: Tenderness - Back Back exam: Denies: CVA tenderness (R), CVA tenderness (L) Course Vital Signs 09/02/17 11:20 Temperature 98.5 F Pulse Rate [ 131 H Pulse Ox Probe] Respiratory 16 Rate Blood Pressure 141/112 [Left Arm] Pulse Ox 99 - Reevaluation(s) Reevaluation #1: The patient is doing very well at this time. I did explain to her that it does appear she has a mild UTI. I also discussed her HTN and mildly elevated HR and she states she has been having anxiety issues and they worsen when she is in the hospital. She appears very calm and cooperative and not under the influence of any drugs or illnesses. She will F/U this week for recheck. 09/02/17 11:59 Medical Decision Making - Lab Data Lab Results 09/02/17 Range/Units 10:39 Urine Color Yellow Urine Appearance Clear Urine pH 7.0 (5.0-8.0) Ur Specific [place] <= 1.005 (1.002-1.030) Urine Protein Negative (NEGATIVE) Urine Glucose (UA) Negative (NEGATIVE) Urine Ketones Trace H (NEGATIVE) Urine Blood Small H (NEGATIVE) Urine Nitrite Negative (NEGATIVE) Urine Bilirubin Negative (NEGATIVE) Urine Urobilinogen 0.2 (0.20 - 1.00) E.U./dL Ur Leukocyte Esterase Moderate H (NEGATIVE) Urine RBC 0 - 2 (NONE SEEN) Urine WBC 6 - 10 (0-2/hpf) U Non-Squamous Epi Cells 3 - 6 /hpf Urine Bacteria 1+ Disposition Disposition: Discharge Clinical Impression: UTI (urinary tract infection) Qualifiers: Urinary tract infection type: acute cystitis Hematuria presence: without hematuria Qualified Code(s): N30.00 - Acute cystitis without hematuria Disposition: Home, Self-Care Condition: (2) Stable Instructions: Urinary Tract Infection in Women (ED) Additional Instructions: Please drink plenty of fluids and take the Macrobid as directed. Please see your family doctor for recheck next week. Return to the ER for any worsening symptoms. Prescriptions: Nitrofurantoin [place] [Macrobid] 100 mg PO BID #10 capsule Forms: Patient Portal Access Time of Disposition: 11:58 Quality - Quality Measures Quality Measures: N/A - Blood Pressure Screening View Details: Yes Does Patient Have Any of the Following: No Blood Pressure Classification: Hypertensive Reading Systolic Measurement: 147 Diastolic Measurement: 103 Screening for High Blood Pressure: < First Hypertensive BP, F/U Documented > [ G8950] First Hypertensive Follow-up Interventions: Referral to alternative/primary care provider.
== END 2017-09-02 12:02 | disposition home or self-care (01) ==
LOC: ER 10:24
DX: N30.00 Acute cystitis without hematuria (principal); I10 Essential (primary) hypertension
CPT/HCPCS: 81001; 99282

== ENCOUNTER 2018-11-12 17:58 | Emergency (ER) | payer MEDICAID, OTHER ==
--- NOTE | 2018-11-12 18:40 | Emergency Department Record ---
History of Present Illness - General Chief Complaint: Alcohol Intoxication Stated Complaint: ALCOHOLISM Time Seen by Provider: 11/12/18 18:31 Source: Patient Mode of Arrival: Ambulatory Limitations: No limitations - History of Present Illness Initial Comments: 28 yo female presents to ED for evaluation of alcohol dependence, reports that she has been attempting to wean herself from alcohol for the past several weeks. Patient reports previous detox efforts and admission to a recovery center in [place] several years ago. Patient denies health problems at her baseline, denies abdominal pain, nausea, or vomiting on examination. Patient's last drink was approximately 4 hours ago. MD Complaint: Alcohol dependence Time Since Last Drink: 4 -: Hour(s) Chronic Alcohol Use: Yes Previous Visits for Alcohol Intoxication?: Yes Recent Trauma: No Associated Symptoms: Denies other symptoms Treatments Prior to Arrival: None - [place] Coma Scale Eye Response: (4) Open spontaneously Motor Response: (6) Obeys commands Verbal Response: (5) Oriented [place] Total: 15 - Related Data Home Medications Medication Instructions Recorded Confirmed Last Taken Alprazolam [Xanax] 0.5 mg PO DAILY PRN 11/12/18 11/12/18 11/10/18 Aripiprazole [Abilify] 5 mg PO DAILY 11/12/18 11/12/18 11/12/18 Sertraline HCl [Zoloft] 100 mg PO DAILY 11/12/18 11/12/18 11/12/18 Previous Rx's Medication Instructions Recorded Chlordiazepoxide HCl [Librium] 25 mg PO Q8H PRN #15 capsule 11/12/18 Allergies Allergy/AdvReac Type Severity Reaction Status Date / Time cyclobenzaprine HCl AdvReac Intermediate DIZZINESS Verified 01/23/17 17:52 [From Flexeril] ibuprofen AdvReac Intermediate GI upset, Verified 01/23/17 17:52 red patches Review of Systems Constitutional: Denies: Chills, Fever, Malaise, Night sweats Eyes: Denies: Eye discharge, Eye pain ENT: Denies: Congestion, Ear pain, Epistaxis Respiratory: Denies: Cough, Dyspnea Cardiovascular: Denies: Chest pain, Dyspnea on exertion Endocrine: Denies: Fatigue, Heat or cold intolerance Gastrointestinal: Denies: Abdominal pain, Nausea, Vomiting Genitourinary: Denies: Incontinence, Retention Musculoskeletal: Denies: Arthralgia, Back pain Skin: Denies: Bruising Neurological: Denies: Abnormal gait, Confusion Psychiatric: Reports: Anxiety Hematological/Lymphatic: Denies: Anemia, Blood Clots Past Medical History - SOCIAL HISTORY Smoking Status: Current every day smoker - RESPIRATORY Hx Respiratory Disorders: No - CARDIOVASCULAR Hx Cardio Disorders: No - NEURO Hx Neuro Disorders: No Hx Headaches: No - GI Hx GI Disorders: No Hx Liver Disease: No - Hx Genitourinary Disorders: No - ENDOCRINE Hx Endocrine Disorders: No - MUSCULOSKELETAL Hx Musculoskeletal Disorders: No Comment:: Herpes zoster - PSYCH Hx Psych Problems: No - HEMATOLOGY/ONCOLOGY Hx Hematology/Oncology Disorders: No Family Medical History Hx Diabetes: Grandparents Physical Exam - General General Appearance: Alert, Oriented x3, Cooperative, Mild distress, Anxious, Other (Patient smells of alcohol on examination) Limitations: No limitations - Head Head exam: Atraumatic, Normocephalic, Normal inspection Head exam detail: negative: Abrasion, Contusion, Luke's sign, General tenderness, Hematoma, Laceration - Eye Eye exam: Normal appearance. negative: Conjunctival injection, Periorbital swelling, Periorbital tenderness, Scleral icterus - ENT Ear exam: negative: Auricular hematoma, Auricular trauma Nasal Exam: negative: Active bleeding, Discharge, Dried blood, Foreign body Mouth exam: negative: Drooling, Laceration, Muffled voice, Tongue elevation - Neck Neck exam: Normal inspection. negative: Meningismus, Tenderness - Respiratory Respiratory exam: Normal lung sounds bilaterally. negative: Respiratory distress, Rhonchi, Stridor, Wheezes - Cardiovascular Cardiovascular Exam: Regular rate, Normal rhythm, Normal heart sounds - GI/Abdominal GI/Abdominal exam: Soft. negative: Distended, Rebound, Rigid, Tenderness - Rectal Rectal exam: Deferred - exam: Deferred - Extremities Extremities exam: Normal inspection. negative: Pedal edema, Tenderness - Back Back exam: Denies: CVA tenderness (R), CVA tenderness (L) - Neurological Neurological exam: Alert, Normal gait, Oriented X3 - Psychiatric Psychiatric exam: Normal affect, Normal mood - Skin Skin exam: Normal color. negative: Abrasion Type of lesion: negative: abrasion Course - Reevaluation(s) Reevaluation #1: 11/12/18 19:41 Initial laboratory studies were reviewed and appear grossly unremarkable for an acute process except for the following: AST 103 ASLT 45 Alcohol level: 0.355 Reevaluation #2: 11/12/18 19:48 UDS appears negative for drug use except for cannibis. Patient was updated on all results, offered admission for alcohol withdrawal, patient is declining as she has small daughters at home that she wants to be with. Patient's SO was present for all my discussions with the patient and is in agreement with the patient's decision. Based on my examination, the patient is alert, oriented, and answers all questions appropriately. Patient appears to have the capacity to make rational decisions based on my examination despite intoxicated with alcohol. Offered to prescribe Librium as directed for withdrawal symptoms, patient is in agreement with that plan of care as discussed. Patient was instructed to return to ED if her symptoms worsen, if seizure occurs, or if she has any concerns. Patient and her SO verbalize understanding of the risks of seizure, worsening of her symptoms as well with alcohol withdrawal. Medical Decision Making - Lab Data Result diagrams: 11/12/18 19:05 11/12/18 19:05 Disposition Disposition: Discharge Clinical Impression: Alcohol withdrawal Qualifiers: Complication of substance-induced condition: uncomplicated Qualified Code(s): F10.230 - Alcohol dependence with withdrawal, uncomplicated Disposition: Home, Self-Care Condition: (2) Stable Instructions: Alcohol Withdrawal (ED) Additional Instructions: Return to ED if your symptoms worsen or if you have any concerns. Librium as directed. Follow-up with your family doctor in 1-3 days as directed without fail. Prescriptions: Chlordiazepoxide HCl [Librium] 25 mg PO Q8H PRN #15 capsule PRN Reason: Agitation Forms: Patient Portal Access Time of Disposition: 19:55 Quality - Quality Measures Quality Measures: N/A - Blood Pressure Screening Does Patient Have Any of the Following: No Blood Pressure Classification: Normal BP Reading Systolic Measurement: 103 Diastolic Measurement: 75 Screening for High Blood Pressure: < Normal BP, F/U Not Required > [G8783] Pre-Hypertensive Follow-up Interventions: Referral to alternative/primary care provider.
[2018-11-12] MEDS ORDERED: 0.9 % SODIUM CHLORIDE 1000ML 1,000 ML IV SCH (18:45)
[2018-11-12 19:27] LABS: ABSOLUTE NEUTROPHIL COUNT 2.95; BASO % 1.3 % (0-6); EOS % 2.5 % (0-6); GRAN % 55.8 % (47-80); HEMATOCRIT 45.1 % (35.0-47.0); HEMOGLOBIN 15.5 gm/dl (11.6-16.0); LYMPH % 31.9 % (16-45); MEAN CELL VOLUME 103.4 fl (81-97); MEAN CORPUSCULAR HEMOGLOBIN 35.6 pg (27-33); MEAN CORPUSCULAR HGB CONC 34.4 g/dl (32-36); MEAN PLATELET VOLUME 8.9 fl (7.4-10.4); MONO % 8.5 % (0-9); PLATELET COUNT 249 K/uL (130-400); RED BLOOD COUNT 4.36 M/uL (3.80-5.40); RED CELL DISTRIBUTION WIDTH 16.7 % (11.5-14.5); WHITE BLOOD COUNT W/O DIFF 5.3 K/uL (4.2-12.2)
[2018-11-12 19:31] LABS: BLOOD UREA NITROGEN 7 mg/dL (6-20); CREATININE 0.6 mg/dL (0.5-0.9); EST GLOMERULAR FILTRATION RATE > 60 mL/min; LIPASE 34 U/L (13-60); TOTAL PROTEIN 7.1 g/dL (6.6-8.7)
[2018-11-12 19:33] LABS: GLUCOSE,RANDOM 85 mg/dL (74-109)
[2018-11-12 19:36] LABS: ALB/GLOB RATIO 1.8 (1.1-1.8); ALBUMIN 4.6 g/dL (4.0-5.0); ALKALINE PHOSPHATASE 124 U/L (35-104); ALT/SGPT 45 U/L (<33); AST/SGOT 103 U/L (10.0-35.0); PROTHROMBIN TIME (PATIENT) 10.6 SECONDS (9.5-12.1)
[2018-11-12 19:40] LABS: URINE APPEARANCE CLOUDY; URINE BILIRUBIN NEGATIVE (NEGATIVE); URINE BLOOD TRACE-I (NEGATIVE); URINE COLOR YELLOW; URINE GLUCOSE (UA) NEGATIVE (NEGATIVE); URINE KETONE NEGATIVE (NEGATIVE); URINE LEUKOCYTE ESTERASE SMALL (NEGATIVE); URINE NITRITE NEGATIVE (NEGATIVE); URINE PROTEIN NEGATIVE (NEGATIVE); URINE UROBILINOGEN 0.2 E.U./dL (0.20 - 1.00)
[2018-11-12 19:44] LABS: BARBITURATE SCREEN URINE NOT DETECTED; METHADONE SCREEN URINE NOT DETECTED; TRICYCLIC ANTIDEPRESSANT SCRN NOT DETECTED
[2018-11-12 19:45] LABS: AMPHETAMINE SCREEN URINE NOT DETECTED; BENZODIAZEPINE SCREEN URINE NOT DETECTED; COCAINE SCREEN URINE NOT DETECTED; METHAMPHETAMINE SCREEN NOT DETECTED; OPIATE SCREEN URINE NOT DETECTED; OXYCODONE SCREEN URINE NOT DETECTED; PHENCYCLIDINE SCREEN URINE NOT DETECTED; PROPOXYPHENE SCREEN URINE NOT DETECTED; THC SCREEN URINE DETECTED
[2018-11-12 19:51] LABS: URINE EPITHELIAL CELLS 36 - 50 (FEW); URINE RBC 0 - 2 (NONE SEEN)
[2018-11-12 19:52] LABS: HCG,QUALITATIVE URINE NEGATIVE (NEGATIVE); URINE BACTERIA FEW; URINE MUCUS MODERATE
== END 2018-11-12 20:18 | disposition home or self-care (01) ==
LOC: ER 17:58
DX: F10.230 Alcohol dependence with withdrawal, uncomplicated (principal); F17.210 Nicotine dependence, cigarettes, uncomplicated
CPT/HCPCS: 80053; 80305; 80320; 81001; 81025; 83690; 85025; 85610; 99284; 99285; J7030

== ENCOUNTER 2018-12-26 13:37 | Emergency (ER) | payer MEDICAID ==
--- NOTE | 2018-12-26 13:51 | Emergency Department Record ---
History of Present Illness - General Chief complaint: Cold Stated complaint: COLD Time Seen by Provider: 12/26/18 13:48 Source: Patient, RN notes reviewed Mode of Arrival: Ambulatory - History of Present Illness Initial comments: congestion and sinus pressure and cough and she is missing work. No abdominal pain no nausea and no vomiting or diarrhea Onset/Timin -: Days(s) Consistency: Constant Improves with: None Worsens with: None Associated Symptoms: Cough, Rhinorrhea, Other - Related Data Allergies Allergy/AdvReac Type Severity Reaction Status Date / Time cyclobenzaprine HCl AdvReac Intermediate DIZZINESS Verified 12/26/18 13:41 [From Flexeril] ibuprofen AdvReac Intermediate GI upset, Verified 12/26/18 13:41 red patches Travel Screening - Travel/Exposure Within Last 30 Days Have you traveled within the last 30 days?: No - Travel/Exposure Within Last Year Have you traveled outside the [place] in the last year?: No - Additonal Travel Details Have you been exposed to anyone with a communicable illness?: No - Travel Symptoms Symptom Screening: None Review of Systems Reviewed: No additional complaints except as noted below Constitutional: Reports: As per HPI. Denies: Chills, Fever, Malaise, Night sweats, Weakness, Weight change Eyes: Reports: As per HPI. Denies: Eye discharge, Eye pain, Photophobia, Vision change ENT: Reports: As per HPI, Congestion. Denies: Dental pain, Ear pain, Epistaxis, Hearing loss, Throat pain Respiratory: Reports: As per HPI. Denies: Cough, Dyspnea, Hemoptysis, Stridor, Wheezes Cardiovascular: Reports: As per HPI. Denies: Arrhythmia, Chest pain, Dyspnea on exertion, Edema, Murmurs, Orthopnea, Palpitations, Paroxysmal nocturnal dyspnea, Rheumatic Fever, Syncope Endocrine: Reports: As per HPI. Denies: Fatigue, Heat or cold intolerance, Po lydipsia, Polyuria Gastrointestinal: Reports: As per HPI. Denies: Abdominal pain, Constipation, Diarrhea, Hematemesis, Hematochezia, Melena, Nausea, Vomiting Genitourinary: Reports: As per HPI. Denies: Abnormal menses, Discharge, Dyspareunia, Dysuria, Frequency, Hematuria, Incontinence, Retention, Urgency Musculoskeletal: Reports: As per HPI. Denies: Arthralgia, Back pain, Gout, Joint swelling, Myalgia, Neck pain Skin: Reports: As per HPI. Denies: Bruising, Change in color, Change in hair/na ils, Lesions, Pruritus, Rash Neurological: Reports: As per HPI. Denies: Abnormal gait, Confusion, Headache, Numbness, Paresthesias, Seizure, Tingling, Tremors, Vertigo, Weakness Psychiatric: Reports: As per HPI. Denies: Anxiety, Auditory hallucinations, Depression, Homicidal thoughts, Suicidal thoughts, Visual hallucinations Hematological/Lymphatic: Reports: As per HPI. Denies: Anemia, Blood Clots, Easy bleeding, Easy bruising, Swollen glands Past Medical History - SOCIAL HISTORY Smoking Status: Current every day smoker Alcohol Use: Occasional Drug Use: None - RESPIRATORY Hx Respiratory Disorders: Yes Hx Pneumonia: Yes - CARDIOVASCULAR Hx Cardio Disorders: Yes Hx Palpitations: Yes - NEURO Hx Neuro Disorders: No Hx Headaches: No - GI Hx GI Disorders: No Hx Liver Disease: No - Hx Genitourinary Disorders: Yes Hx UTI: Yes - ENDOCRINE Hx Endocrine Disorders: No - MUSCULOSKELETAL Hx Musculoskeletal Disorders: No Comment:: Herpes zoster - PSYCH Hx Psych Problems: No Hx Anxiety: Yes Hx Depression: Yes - HEMATOLOGY/ONCOLOGY Hx Hematology/Oncology Disorders: No Family Medical History Any Significant Family History?: Yes Hx Diabetes: Grandparents Physical Exam - General General Appearance: Alert, Oriented x3, Cooperative, No acute distress - Head Head exam: Normal inspection - Eye Eye exam: Normal appearance, PERRL Pupils: Normal accommodation - ENT ENT exam: Normal exam, Mucous membranes moist, Normal external ear exam, Normal orophraynx, TM's normal bilaterally Ear exam: Normal external inspection. negative: External canal tenderness Nasal Exam: Normal inspection. negative: Discharge, Sinus tenderness Mouth exam: Normal external inspection, Tongue normal Teeth exam: Normal inspection. negative: Dental caries Throat exam: Normal inspection. negative: Tonsillar erythema, Tonsillar exudate - Neck Neck exam: Normal inspection, Full ROM. negative: Tenderness - Respiratory Respiratory exam: Normal lung sounds bilaterally. negative: Respiratory distres s - Cardiovascular Cardiovascular Exam: Regular rate, Normal rhythm, Normal heart sounds - GI/Abdominal GI/Abdominal exam: Soft, Normal bowel sounds. negative: Tenderness - Rectal Rectal exam: Deferred - exam: Deferred - Extremities Extremities exam: Normal inspection, Full ROM, Normal capillary refill. negative: Tenderness - Back Back exam: Reports: Normal inspection, Full ROM. Denies: Muscle spasm, Rash noted, Tenderness - Neurological Neurological exam: Alert, Normal gait, Oriented X3, Reflexes normal - Psychiatric Psychiatric exam: Normal affect, Normal mood - Skin Skin exam: Dry, Intact, Normal color, Warm Course Vital Signs 12/26/18 13:43 Temperature 98.7 F Pulse Rate 109 H Respiratory 20 Rate Blood Pressure 129/92 Pulse Ox 99 Disposition Clinical Impression: URI (upper respiratory infection) Qualifiers: URI type: unspecified viral URI Qualified Code(s): J06.9 - Acute upper respiratory infection, unspecified Disposition: Home, Self-Care Instructions: Cold Symptoms (ED) Additional Instructions: follow up with family in one week Forms: Patient Portal Access Time of Disposition: 14:43 Quality - Quality Measures Quality Measures: N/A - Blood Pressure Screening Does Patient Have Any of the Following: No Blood Pressure Classification: Hypertensive Reading Systolic Measurement: 129 Diastolic Measurement: 92 Screening for High Blood Pressure: < Pre-Hypertensive BP, F/U Documented > [G8950] Pre-Hypertensive Follow-up Interventions: Referral to alternative/primary care provider.
== END 2018-12-26 14:56 | disposition home or self-care (01) ==
LOC: ER 13:37
DX: J06.9 Acute upper respiratory infection, unspecified (principal); R05 Cough; F17.210 Nicotine dependence, cigarettes, uncomplicated
CPT/HCPCS: 87880; 99282